=== PATIENT | male | born 1950 | race Caucasian/White ===

== ENCOUNTER → 2016-12-02 | Outpatient (CLI) | payer BC ==
[~2016-12-02] MED LIST: ADAL20KI INJ; ATOR-24 PO; FLV1 PO; GLC850 PO; GLIP-197 PO; METH7.5T PO; NORT25CA PO; OMEP20CA9 OR; POTA20TA16 PO; TPRSR50 PO
== END | disposition home or self-care (01) ==
LOC: C.RDSM 09:20
PROVIDERS: ATTEND Physical Medicine & Rehabilitation Sports Medicine
DX: R20.0 Anesthesia of skin (principal); S44.02XA Injury of ulnar nerve at upper arm level, left arm, initial encounter; X58.XXXA Exposure to other specified factors, initial encounter

== ENCOUNTER → 2017-01-02 | Outpatient (CLI) | payer BC ==
[~2017-01-02] MED LIST changes: +AMLO-114 PO; +FOLI1TAB7 PO; +METF-383 PO; +METO50TA7 PO; +OXYC-57 PO; +PRLSR20 PO
--- NOTE | 2017-01-02 08:14 | DIAGNOSTIC IMAGING REPORT ---
EXAMINATION: RENAL ULTRASOUND CLINICAL HISTORY: HEMATURIA, URINARY FREQUENCY COMPARISON STUDY: October 23, 2015 FINDINGS: The right kidney measures 13.5 cm. The left kidney measures 13.7 cm. There is no evidence of hydronephrosis. There is a 43 mm lower pole left renal cyst. No bladder abnormalities are visualized. Bilateral ureteral jets were visualized. The prostate appears enlarged. IMPRESSION : 4.3 cm left renal cyst. No hydronephrosis. Enlarged prostate. Electronically signed by: Dwaine Sam M.D. 01/02/2017 8:12 AM Dictated Date/Time: 01/02/2017 8:10 AM
== END | disposition home or self-care (01) ==
LOC: C.ULTR 07:34
PROVIDERS: ATTEND Family Medicine
DX: R31.9 Hematuria, unspecified (principal); R35.0 Frequency of micturition; N28.1 Cyst of kidney, acquired; N40.0 Benign prostatic hyperplasia without lower urinary tract symptoms

== ENCOUNTER → 2017-01-21 | Outpatient (CLI) | payer BC | END | disposition home or self-care (01) | LOC: C.PATHSPEC 17:54 | PROVIDERS: ATTEND Nurse Practitioner Family | DX: R31.29 Other microscopic hematuria (principal) ==

== ENCOUNTER → 2017-01-22 | Outpatient (CLI) | payer BC ==
[2017-01-22 16:49] LABS: BASO % 0.2 %; BASO ABS # 0.01 K/uL (0-0.2); COMPLETE YES; EOS % 4.3 %; HEMATOCRIT 38.7 % (42-52); LYMPH % 29.8 %; LYMPH ABS # 1.68 K/uL (1.2-3.4); MEAN CELL VOLUME 92.8 fL (80-100); MEAN CORPUSCULAR HEMOGLOBIN 31.9 pg (25-34); MEAN CORPUSCULAR HGB CONC 34.4 g/dl (32-36); MEAN PLATELET VOLUME 9.1 fL (7.4-10.4); NEUT % 56.7 %; PLATELET COUNT 194 K/uL (130-400); RED BLOOD COUNT 4.17 M/uL (4.7-6.1); WHITE BLOOD COUNT 5.64 K/uL (4.8-10.8)
[2017-01-22 18:42] LABS: ALT/SGPT 45 U/L (12-78); AST/SGOT 29 U/L (15-37); BLOOD UREA NITROGEN 21 mg/dl (7-18)
[2017-01-22 18:44] LABS: ALKALINE PHOSPHATASE 85 U/L (45-117)
== END | disposition home or self-care (01) ==
LOC: C.LAB1850 15:19
PROVIDERS: ATTEND Nurse Practitioner Family
DX: Z15.89 Genetic susceptibility to other disease (principal); M46.90 Unspecified inflammatory spondylopathy, site unspecified; L40.9 Psoriasis, unspecified; Z79.899 Other long term (current) drug therapy; R31.29 Other microscopic hematuria

== ENCOUNTER → 2017-01-27 | Outpatient (CLI) | payer BC ==
[~2017-01-27] MED LIST changes: +OPTIRAY 320 IV PRN
--- NOTE | 2017-01-27 16:03 | DIAGNOSTIC IMAGING REPORT ---
CT OF THE ABDOMEN AND PELVIS WITH AND WITHOUT CONTRAST HEMATURIA PROTOCOL CLINICAL HISTORY: Microscopic hematuria. COMPARISON STUDY: CT of the abdomen and pelvis January 18, 2010 and renal ultrasound January 02, 2017. TECHNIQUE: Unenhanced and split bolus phase imaging of the abdomen and pelvis was performed. Injection of 120 cc Optiray [address] DOSE: 2172.20 mGycm FINDINGS: Lung bases are clear. The liver, spleen, adrenal glands and pancreas are unremarkable. There is a 3.9 cm left renal cyst. Note is made of a 4 mm calculus within the left posterior aspect of the bladder. This is in close proximity to the left ureterovesical junction. This calculus is either within the left ureterovesical junction or within the bladder. There is moderate enlargement of the prostate. There is no evidence for a bowel obstruction. There is left colon diverticulosis without evidence for acute diverticulitis. There is no lymphadenopathy. There are no suspicious osseous lesions. IMPRESSION: 1. 4 mm calculus which projects over the left posterior aspect of the bladder. This is either within the ureterovesical junction or the bladder. No hydronephrosis. 2. Moderate enlargement of prostate. 3. 4 cm renal cyst. Electronically signed by: John Flores M.D. 01/27/2017 4:01 PM Dictated Date/Time: 01/27/2017 3:51 PM
== END | disposition home or self-care (01) ==
LOC: C.CTS 14:49
PROVIDERS: ATTEND Nurse Practitioner Family
DX: R31.29 Other microscopic hematuria (principal)

== ENCOUNTER → 2017-01-29 | Outpatient (CLI) | payer BC ==
[~2017-01-29] MED LIST changes: -OPTIRAY 320 IV PRN
[2017-01-29 14:55] LABS: BLOOD UREA NITROGEN 18 mg/dl (7-18); BUN/CREATININE RATIO 13.8 (10-20)
== END | disposition home or self-care (01) ==
LOC: C.LAB1850 12:04
PROVIDERS: ATTEND Urology
DX: R31.29 Other microscopic hematuria (principal)

== ENCOUNTER → 2017-03-12 | Outpatient (CLI) | payer BC ==
[2017-03-12 15:56] LABS: HEMATOCRIT 42.6 % (42-52); MEAN CELL VOLUME 90.3 fL (80-100); MEAN CORPUSCULAR HEMOGLOBIN 30.9 pg (25-34); MEAN CORPUSCULAR HGB CONC 34.3 g/dl (32-36); MEAN PLATELET VOLUME 8.6 fL (7.4-10.4); PLATELET COUNT 186 K/uL (130-400); RED BLOOD COUNT 4.72 M/uL (4.7-6.1); WHITE BLOOD COUNT 7.64 K/uL (4.8-10.8)
[2017-03-12 16:16] LABS: ALT/SGPT 37 U/L (12-78)
[2017-03-12 16:20] LABS: ALKALINE PHOSPHATASE 85 U/L (45-117); AST/SGOT 29 U/L (15-37)
[2017-03-12 16:27] LABS: BASO % 0.4 %; BASO ABS # 0.03 K/uL (0-0.2); COMPLETE YES; EOS % 5.6 %; IG% 0.3 %; LYMPH % 28.1 %; LYMPH ABS # 2.15 K/uL (1.2-3.4); MONO % 7.5 %; NEUT % 58.1 %
--- NOTE | 2017-03-24 10:54 | CODING QUERY MEDICAL NECESSITY ---
SUPPORTING DIAGNOSIS NEEDED Dr. Alatorre, A supporting diagnosis is required for the test/procedure performed on this patient in order for us to be reimbursed by the patient's insurance. Please provide a supporting diagnosis for the following test/procedure listed below next to the test name along with your signature. *If there is no additional diagnosis for this patient that would support the following test/procedure please document that below next to the test/procedure. Test(s)/Procedure(s) that require a supporting diagnosis: * [id number] PSA DIAGNOSIS: DATE OF SERVICE: 03/12/17 Provider Signature: Date: Thank you Yony Crews [facility] Information Management Once completed, please kindly fax back to [phone] For questions please call [phone]
== END | disposition home or self-care (01) ==
LOC: C.LAB1850 14:29
PROVIDERS: ATTEND Urology
DX: N20.0 Calculus of kidney (principal); M46.90 Unspecified inflammatory spondylopathy, site unspecified; Z79.899 Other long term (current) drug therapy; N40.0 Benign prostatic hyperplasia without lower urinary tract symptoms

== ENCOUNTER → 2017-07-29 | Outpatient (CLI) | payer BC ==
[2017-07-29 13:25] LABS: PARTIAL THROMBOPLASTIN RATIO 0.9; PROTHROMBIN TIME (PATIENT) 10.5 SECONDS (9.0-12.0)
[2017-07-29 13:30] LABS: BASO % 0.5 %; BASO ABS # 0.03 K/uL (0-0.2); COMPLETE YES; EOS % 5.7 %; HEMATOCRIT 40.5 % (42-52); IG% 0.3 %; LYMPH % 30.3 %; LYMPH ABS # 1.76 K/uL (1.2-3.4); MEAN CELL VOLUME 92.5 fL (80-100); MEAN CORPUSCULAR HEMOGLOBIN 32.6 pg (25-34); MEAN CORPUSCULAR HGB CONC 35.3 g/dl (32-36); MEAN PLATELET VOLUME 8.6 fL (7.4-10.4); MONO % 6.7 %; NEUT % 56.5 %; PLATELET COUNT 184 K/uL (130-400); RED BLOOD COUNT 4.38 M/uL (4.7-6.1)
[2017-07-29 13:44] LABS: ALT/SGPT 33 U/L (12-78); BLOOD UREA NITROGEN 17 mg/dl (7-18); BUN/CREATININE RATIO 12.7 (10-20); CALCIUM 9.3 mg/dl (8.5-10.1); CARBON DIOXIDE 33 mmol/L (21-32); CHLORIDE 102 mmol/L (98-107); CREATININE 1.34 mg/dl (0.60-1.40); GLUCOSE 253 mg/dl (70-99); POTASSIUM 3.2 mmol/L (3.5-5.1); SODIUM 141 mmol/L (136-145)
[2017-07-29 13:47] LABS: ALKALINE PHOSPHATASE 100 U/L (45-117); AST/SGOT 24 U/L (15-37)
== END | disposition home or self-care (01) ==
LOC: C.LAB1850 12:28
PROVIDERS: ATTEND Surgery
DX: R31.29 Other microscopic hematuria (principal); Z15.89 Genetic susceptibility to other disease; M46.90 Unspecified inflammatory spondylopathy, site unspecified; Z79.899 Other long term (current) drug therapy; D21.6 Benign neoplasm of connective and other soft tissue of trunk, unspecified; Z01.812 Encounter for preprocedural laboratory examination

== ENCOUNTER → 2017-08-01 | Day surgery (SDC) | payer BC ==
[2017-07-30 15:07] VITALS: Ht 185.4 cm; Wt 113.6 kg
[~2017-08-01] VITALS: Ht 185.4 cm; Wt 113.6 kg
[~2017-08-01] MED LIST changes: +ATROPINE SULFATE 0.1 MG/ML 5ML SYR IV PRN; +BUPIVACAINE 0.5 % 5 MG/1 ML MPF 30ML VIAL ONE; +CLINDAMYCIN PHOS 150 MG/ML 2 ML VIAL IV SCH; +DEXAMETHASONE SOD INJ 4 MG/ML VIAL ONE; +EpHEDrine SULFATE INJ 50 MG/ML AMP IV PRN; +FENTANYL CITRATE INJ 50 MCG/1 ML 2 ML VIAL IV PRN; +FENTANYL CITRATE INJ 50 MCG/1 ML 2 ML VIAL ONE; -FLV1 PO; -GLC850 PO; -GLIP-197 PO; +HYDROmorphone INJ 1 MG/ML SYR IV PRN; +LACTATED RINGER'S 1000ML 1,000 ML IV SCH; +LIDOCAINE HCL 2% 2 ML VIAL (20MG/ML) ONE; +MIDAZOLAM HCL 1 MG/ML 2ML VIAL ONE; -OMEP20CA9 OR; +ONDANSETRON INJ 2 MG/ML 2 ML VIAL IV PRN; +ONDANSETRON INJ 2 MG/ML 2 ML VIAL ONE; +OXYCODONE/ACETAMINOPHEN 5-325 TAB PO PRN; +PROMETHAZINE HCL INJ 12.5 MG in SODIUM CHLORIDE 0.9% 50ML 50 ML IV PRN; +PROPOFOL IV EMULSION 10 MG/ML 20 ML VIAL IV ONE; +ROCURONIUM BROMIDE 10 MG/ML 5 ML VIAL IV ONE; +SODIUM CHLORIDE 0.9% 1000ML 1,000 ML IV SCH; +SUCCINYLCHOLINE CHLORIDE 20 MG/ML 10 ML VIAL IV ONE; -TPRSR50 PO
--- NOTE | 2017-08-01 11:46 | History & Physical Bridge - SC ---
H&P Re-Evaluation Bridge Note: I have examined the patient, reviewed the History & Physical and in the interval since the performance of the History & Physical I have noted the following changes of clinical significance: Last dose of Humira ~12 days ago. No changes noted
--- NOTE | 2017-08-01 12:56 | [facility] Post Operative Brief Note ---
Immediate Operative Summary Operative Date Aug 01, 2017. Pre-Operative Diagnosis 6cm mass on back Post-Operative Diagnosis same as preop Procedure(s) Performed Back Mass Excision (6cm) Surgeon Dr. Bernardo Derrick Boat Leverman Surgeon(s) none Estimated Blood Loss 4ML Findings 6 x 4 cm lipoma excised. Good hemostasis. Specimens A: Posterior Neck Mass Drains none Anesthesia Gen. endotracheal anesthesia Complication(s) None Disposition Recovery Room / PACU
--- NOTE | 2017-08-01 13:00 | Discharge Instructions ---
Discharge Instructions Date of Service Aug 01, 2017. Visit Reason for Visit: 6 Cm Mass On Back Discharge Discharge Diagnosis / Problem: Excision of 6 cm Mass on back Discharge Goals Goal(s): Decrease discomfort, Improve function Medications Stopped Medications Name(s): metformin stopped on 07/30/17 Activity Recommendations Activity Limitations: as noted below Lifting Limitations: no more than 10 pounds Exercise/Sports Limitations: gradually increase as tolerated Shower/Bathe: tomorrow Driving or Machine Use: resume 1 day after discharge (when no longer using narcotic pain medication) Caution with stretching or bending that may tear your sutures. Anesthesia . Post Anesthesia Instructions: If you have had General Anesthesia or IV Sedation: * Do not drive today. * Resume driving when surgeon permits. * Do not make important decisions or sign legal documents today. * Call surgeon for: 1. Temperature elevations greater than 101 degrees F. 2. Uncontrollable pain. 3. Excessive bleeding. 4. Persistent nausea and vomiting. 5. Medication intolerance (nausea, vomiting or rash). * For nausea and vomiting use only clear liquids such as: tea, soda, bouillon until nausea subsides, then gradually increase diet as tolerated. * If you have any concerns or questions, call your surgeon's office. If physician is unavailable and it is an emergency, call 911 or go to the nearest emergency room. . Instructions / Follow-Up Instructions / Follow-Up Follow-up with Dr. Bernardo in the office in 2 weeks. Please call our office at [phone] to schedule an appointment if you have not done so already. Diet Recommendations Recommended Home Diet: resume previous diet Procedures Procedures Performed: Back Mass Excision (6cm) Pending Studies Studies pending at discharge: yes List of pending studies: Pathology Medical Emergencies . Who to Call and When: Medical Emergencies: If at any time you feel your situation is an emergency, please call 911 immediately. . Non-Emergent Contact Non-Emergency issues call your: Primary Care Provider, Surgeon Call Non-Emergent contact if: you have a fever, temperature is above 101.5, your pain is not controlled, your pain is worsening, wound has increased drainage, wound has increased redness . . "Provider Documentation" section prepared by Thad Barboza. . [place] Drug Monitoring Program Search Results: patient reviewed within database, no issues identified
--- NOTE | 2017-08-01 13:01 | [facility] Operative Report ---
Operative Report Operative Date Aug 01, 2017. Pre-Operative Diagnosis 6cm mass on back Post-Operative Diagnosis same as preop Procedure(s) Performed Back Mass Excision (6cm) Surgeon Dr. Bernardo [employer] Mixer Surgeon(s) none Estimated Blood Loss 4ML Findings 6 x 4 cm lipoma excised. Good hemostasis. Specimens A: Posterior Neck Mass Drains none Anesthesia GETA Complication(s) None Disposition Recovery Room / PACU Indications 66-year-old male with symptomatic soft tissue mass of the upper back, likely lipoma, plan for excision soft tissue mass from back. The risks of the procedure were discussed, all questions were answered, and the patient agreed to proceed with surgery as planned. Description of Procedure The patient was properly identified, consented, and taken to the operating room where he was placed in the supine position. General endotracheal anesthesia was induced. The patient was then rolled into the prone position. SCDs and a safety belt were placed. Preoperative antibiotics were administered. The patient's upper back and neck was prepped and draped in the standard sterile fashion. Surgical timeout was performed and all parties were in agreement that this was the correct patient and procedure to be performed and we continued as planned. Local anesthetic was injected along the skin incision. A transverse incision was made overlying the mass and deepened down through the subcutaneous tissue with electrocautery. The lipoma was circumferentially dissected, excised, and passed off the table as specimen. The lipoma had multiple extensions that went into the surrounding tissue, and was removed in piecemeal fashion. The wound was irrigated and hemostasis was confirmed. The Noemy's fascia was closed with interrupted 3-0 Vicryl sutures, the skin was then closed with interrupted 3 -0 Vicryl deep dermal sutures, followed by 3-0 nylon interrupted simple suture. A sterile dressing was placed over the wound. The patient was extubated in the operating room and taken to the PACU where he recovered without apparent incident. All sponge, instrument and needle counts were correct at the conclusion of the procedure. The patient tolerated the procedure well. I attest to the content of the Intraoperative Record and any orders documented therein. Any exceptions are noted below.
[2017-08-01 13:37] VITALS: TEMP 36.4
--- NOTE | 2017-08-01 13:58 | Anesthesia Progress Nt - [facility] ---
Anesthesia Post Op Note Date & Time Aug 01, 2017 at 13:58 Vital Signs Pain Intensity: 0 Vital Signs Past 12 Hours Date Time Temp Pulse Resp B/P (MAP) Pulse Ox O2 Delivery O2 Flow Rate FiO2 08/01/17 13:37 36.4 64 16 139/75 (96) 95 Room Air 08/01/17 13:31 135/71 08/01/17 13:28 63 9 98 08/01/17 13:28 65 9 08/01/17 13:27 65 10 99 08/01/17 13:27 66 10 08/01/17 13:26 64 7 08/01/17 13:26 64 7 136/74 98 08/01/17 13:25 36.6 98 Room Air 08/01/17 13:21 67 3 08/01/17 13:21 67 3 133/74 98 08/01/17 13:16 71 9 131/70 99 08/01/17 13:16 70 9 08/01/17 13:15 70 13 98 08/01/17 13:15 70 13 98 08/01/17 13:15 72 13 08/01/17 13:15 72 13 08/01/17 13:11 138/71 08/01/17 13:11 138/71 08/01/17 13:10 74 12 100 08/01/17 13:10 74 12 100 08/01/17 13:10 74 12 08/01/17 13:10 74 12 08/01/17 13:06 147/81 08/01/17 13:06 147/81 08/01/17 13:05 73 7 08/01/17 13:05 72 7 100 08/01/17 13:05 73 7 08/01/17 13:05 72 7 100 08/01/17 13:00 75 17 08/01/17 13:00 75 17 152/80 99 08/01/17 13:00 75 17 152/80 99 08/01/17 13:00 75 17 08/01/17 13:00 36.6 75 16 154/80 98 Mask 6 08/01/17 10:14 36.7 56 18 182/83 (116) 98 Room Air Notes Mental Status: alert / awake / arousable, participated in evaluation Pt Amnestic to Procedure: Yes Nausea / Vomiting: adequately controlled Pain: adequately controlled Airway Patency, RR, SpO2: stable & adequate BP & HR: stable & adequate Hydration State: stable & adequate Anesthetic Complications: no major complications apparent
[2017-08-01 14:02] VITALS: BP 164/89; PULSE 60; O2SAT 98
== END | disposition home or self-care (01) ==
LOC: X.SURG 09:44
PROVIDERS: ATTEND Surgery
DX: D17.1 Benign lipomatous neoplasm of skin and subcutaneous tissue of trunk (principal); M46.90 Unspecified inflammatory spondylopathy, site unspecified; N40.0 Benign prostatic hyperplasia without lower urinary tract symptoms; L40.9 Psoriasis, unspecified; Z79.84 Long term (current) use of oral hypoglycemic drugs; Z79.899 Other long term (current) drug therapy

== ENCOUNTER → 2018-02-06 | Outpatient (CLI) | payer BC ==
[~2018-02-06] MED LIST changes: -ATROPINE SULFATE 0.1 MG/ML 5ML SYR IV PRN; -BUPIVACAINE 0.5 % 5 MG/1 ML MPF 30ML VIAL ONE; -CLINDAMYCIN PHOS 150 MG/ML 2 ML VIAL IV SCH; -DEXAMETHASONE SOD INJ 4 MG/ML VIAL ONE; -EpHEDrine SULFATE INJ 50 MG/ML AMP IV PRN; -FENTANYL CITRATE INJ 50 MCG/1 ML 2 ML VIAL IV PRN; -FENTANYL CITRATE INJ 50 MCG/1 ML 2 ML VIAL ONE; -FOLI1TAB7 PO; +FOLI1TAB8 PO; -HYDROmorphone INJ 1 MG/ML SYR IV PRN; -LACTATED RINGER'S 1000ML 1,000 ML IV SCH; -LIDOCAINE HCL 2% 2 ML VIAL (20MG/ML) ONE; -METO50TA7 PO; +METO50TA8 PO; -MIDAZOLAM HCL 1 MG/ML 2ML VIAL ONE; -ONDANSETRON INJ 2 MG/ML 2 ML VIAL IV PRN; -ONDANSETRON INJ 2 MG/ML 2 ML VIAL ONE; -OXYC-57 PO; -OXYCODONE/ACETAMINOPHEN 5-325 TAB PO PRN; +POTA-639 PO; -POTA20TA16 PO; -PROMETHAZINE HCL INJ 12.5 MG in SODIUM CHLORIDE 0.9% 50ML 50 ML IV PRN; -PROPOFOL IV EMULSION 10 MG/ML 20 ML VIAL IV ONE; -ROCURONIUM BROMIDE 10 MG/ML 5 ML VIAL IV ONE; -SODIUM CHLORIDE 0.9% 1000ML 1,000 ML IV SCH; -SUCCINYLCHOLINE CHLORIDE 20 MG/ML 10 ML VIAL IV ONE
--- NOTE | 2018-02-06 14:45 | DIAGNOSTIC IMAGING REPORT ---
ULTRASOUND KIDNEYS AND BLADDER CLINICAL HISTORY: Microscopic hematuria. COMPARISON STUDY: Abdominal CT dated 01/27/2017. TECHNIQUE: Real-time, grayscale, and color flow sonography of the kidneys and bladder is performed. Images are reviewed in the transverse and longitudinal planes. FINDINGS: Kidneys: The kidneys demonstrate mild cortical atrophy and are normal in echotexture. The right kidney measures 13.8 cm and the left kidney measures 12.1 cm in length. There is no hydronephrosis. No shadowing renal calculi are identified. A 3.9 cm cyst arises from the lower pole of the left kidney. There is no sonographic evidence of contour deforming renal mass lesion. No perinephric fluid is identified. Bladder: The prostate gland is enlarged and there is median lobe hypertrophy. Although decompressed, the bladder wall appears thickened and trabeculated suggesting chronic outlet obstruction. Ureteral jets were not seen. Upper abdomen: Survey images of the liver show evidence of steatosis. IMPRESSION: 1. The kidneys demonstrate mild cortical atrophy and are without hydronephrosis. 2. Prostatomegaly with evidence of chronic bladder outlet obstruction. Electronically signed by: Evangelist Meneses M.D. 02/06/2018 2:44 PM Dictated Date/Time: 02/06/2018 2:35 PM
== END | disposition home or self-care (01) ==
LOC: C.ULTR 14:10
PROVIDERS: ATTEND Internal Medicine Nephrology
DX: E11.9 Type 2 diabetes mellitus without complications (principal); I10 Essential (primary) hypertension; N18.1 Chronic kidney disease, stage 1; N20.0 Calculus of kidney; R31.29 Other microscopic hematuria; N40.0 Benign prostatic hyperplasia without lower urinary tract symptoms; R80.9 Proteinuria, unspecified

== ENCOUNTER → 2018-02-09 | Outpatient (CLI) | payer BC ==
[2018-02-09 10:12] LABS: BASO % 0.3 %; BASO ABS # 0.02 K/uL (0-0.2); EOS % 5.5 %; EOS ABS # 0.32 K/uL (0-0.5); HEMOGLOBIN 14.4 g/dL (14.0-18.0); IG# 0.01 K/uL (0.00-0.02); LYMPH % 29.7 %; LYMPH ABS # 1.73 K/uL (1.2-3.4); MEAN CELL VOLUME 91.5 fL (80-100); MEAN CORPUSCULAR HEMOGLOBIN 32.1 pg (25-34); MEAN CORPUSCULAR HGB CONC 35.1 g/dl (32-36); MEAN PLATELET VOLUME 8.8 fL (7.4-10.4); MONO % 7.2 %; MONO ABS # 0.42 K/uL (0.11-0.59); NEUT % 57.1 %; NEUT ABS # 3.32 K/uL (1.4-6.5); PLATELET COUNT 184 K/uL (130-400); RED CELL DISTRIBUTION WIDTH CV 12.3 % (11.5-14.5); WHITE BLOOD COUNT 5.82 K/uL (4.8-10.8)
[2018-02-09 10:29] LABS: ALBUMIN 3.8 gm/dl (3.4-5.0); ALT/SGPT 41 U/L (12-78); AST/SGOT 26 U/L (15-37); BLOOD UREA NITROGEN 15 mg/dl (7-18); CALCIUM 9.1 mg/dl (8.5-10.1); CARBON DIOXIDE 27 mmol/L (21-32); CREATININE 1.65 mg/dl (0.60-1.40); GLUCOSE 216 mg/dl (70-99); POTASSIUM 3.2 mmol/L (3.5-5.1); SODIUM 139 mmol/L (136-145)
[2018-02-09 10:34] LABS: ALKALINE PHOSPHATASE 86 U/L (45-117); TOTAL PROTEIN 7.6 gm/dl (6.4-8.2)
== END | disposition home or self-care (01) ==
LOC: C.LAB1850 08:51
PROVIDERS: ATTEND Internal Medicine Nephrology
DX: N40.0 Benign prostatic hyperplasia without lower urinary tract symptoms (principal); M46.90 Unspecified inflammatory spondylopathy, site unspecified; R31.29 Other microscopic hematuria; I12.9 Hypertensive chronic kidney disease with stage 1 through stage 4 chronic kidney disease, or unspecified chronic kidney disease; E11.9 Type 2 diabetes mellitus without complications; N18.1 Chronic kidney disease, stage 1; R80.9 Proteinuria, unspecified; N20.0 Calculus of kidney

== ENCOUNTER → 2018-02-24 | Outpatient (CLI) | payer BC ==
--- NOTE | 2018-02-24 16:39 | DIAGNOSTIC IMAGING REPORT ---
VENOUS DOPPLER LWR EXT BILA CLINICAL HISTORY: 67 years-old Male presenting with RT LE PAIN/SWELLING, R/O DVT PAGE DR MILLER @[id number]. TECHNIQUE: Real-time grayscale and color and spectral Doppler ultrasound imaging of the veins of the bilateral lower extremities was performed. Compression and augmentation were also utilized. COMPARISON: None. FINDINGS: Right: Common femoral vein: Patent. Greater saphenous vein: Patent. Deep femoral vein: Patent. Femoral vein: Patent. Popliteal vein: Patent. Calf veins: Patent. Left: Common femoral vein: Patent. Greater saphenous vein: Patent. Deep femoral vein: Patent. Femoral vein: Patent. Popliteal vein: Patent. Calf veins: Patent. Other: None. IMPRESSION: No evidence of deep venous thrombosis. Electronically signed by: Paulie Beck M.D. 02/24/2018 4:37 PM Dictated Date/Time: 02/24/2018 4:37 PM
== END | disposition home or self-care (01) ==
LOC: C.ULTR 15:22
PROVIDERS: ATTEND Physical Medicine & Rehabilitation
DX: M79.89 Other specified soft tissue disorders (principal)

== ENCOUNTER 2023-05-20 08:45 | Observation (INO) ==
--- NOTE | 2023-04-29 09:30 | PAT Medication Instructions ---
Medication Instructions Date of Service April 29, 2023 Home Medications Medication Instructions Recorded ergocalciferol (vitamin D2) 1,250 1,250 mcg PO .COMPLEX #12 caps 10/09/22 mcg (50,000 unit) capsule bumetanide 1 mg tablet 1 mg PO BID #180 tabs 02/10/23 semaglutide 2 mg/dose (8 mg/3 mL) 2 mg (0.75 mL) subcut .weekly #3 mL 03/05/23 subcutaneous pen injector (Ozempic) adalimumab 40 mg/0.8 mL subcutaneous syringe kit (Humira) 40 mg subcut Q14D meloxicam 7.5 mg tablet 7.5 mg PO DAILY PRN metoprolol succinate 50 mg capsule sprinkle, ext. release 24 hr 50 mg PO QAM pravastatin 80 mg tablet 80 mg PO QAM amlodipine 5 mg tablet 5 mg PO QAM ergocalciferol (vitamin D2) 1,250 mcg (50,000 unit) capsule 1,250 mcg PO .COMPLEX bumetanide 1 mg tablet 1 mg PO BID semaglutide 2 mg/dose (8 mg/3 mL) subcutaneous pen injector (Ozempic) 2 mg (0.75 mL) subcut .weekly dutasteride 0.5 mg capsule 0.5 mg PO QAM folic acid 1 mg tablet 1 mg PO UD gabapentin 300 mg capsule 300 mg PO UD methotrexate sodium 2.5 mg tablet 2.5 mg PO UD STOP 7 days before surgery methotrexate sodium 2.5 mg tablet 2.5 mg PO UD Continue as directed semaglutide 2 mg/dose (8 mg/3 mL) subcutaneous pen injector (Ozempic) 2 mg (0.75 mL) subcut .weekly gabapentin 300 mg capsule 300 mg PO UD ASK your surgeon for instructions meloxicam 7.5 mg tablet 7.5 mg PO DAILY PRN ASK your prescriber and surgeon adalimumab 40 mg/0.8 mL subcutaneous syringe kit (Humira) 40 mg subcut Q14D DO NOT take the morning of surgery ergocalciferol (vitamin D2) 1,250 mcg (50,000 unit) capsule 1,250 mcg PO .COMPLEX bumetanide 1 mg tablet 1 mg PO BID dutasteride 0.5 mg capsule 0.5 mg PO QAM folic acid 1 mg tablet 1 mg PO UD Take morning of surgery With a small sip of water, OTHERWISE NOTHING TO EAT OR DRINK AFTER MIDNIGHT: metoprolol succinate 50 mg capsule sprinkle, ext. release 24 hr 50 mg PO QAM pravastatin 80 mg tablet 80 mg PO QAM amlodipine 5 mg tablet 5 mg PO QAM Take evening before surgery bumetanide 1 mg tablet 1 mg PO BID Other Notes If you have any questions please call us at [phone] or [phone] or [phone] or [phone]
--- NOTE | 2023-05-05 09:11 | Anesthesiology Consultation ---
Date of Service May 05, 2023 Assessment & Plan (1) Encounter for pre-operative examination: Chart Review Chart Review: Pending: Refer to Additional Notes / Consult section (pending plan re: uncontrolled DM) and Patient seen in Pre Admission Testing - Surgeon would like PCP to try to improve patient's blood sugars LELAND- per surgeon's office- PCP appt scheduled 05/13/23 - Check BSG AM DOS Per PAT appt on 05/05/23, patient denies any recent travel. No recent Covid exposures, Covid related symptoms, or recent Covid positive tests. Will leave to surgeon's discretion if preop Covid testing needed. Educated on importance of using Covid precautions one week prior to surgery. Pt seen in the ER 05/05/23= Patient seen for evaluation of hyperglycemia. Had preop testing with blood sugar of 306sent to the ER for evaluation. History of hyperglycemiahas been stressed about having surgery. Does admit to being a bit dehydrated. Given IV fluids and feels quite well. Blood sugars in mid 200sotherwise labs unremarkable. Mild elevation in creatinine but is at baseline and follows with nephrology closely. Patient is reasonable for discharge. Follow-up with PCP and nephrology Excision of back mass 08/01/17= Done under GA with Grade 1 view with Mason #2. ETT #8.0. DL x 1, atraumatic Teaching & Discussion Pre-Anesthesia Teaching/Discussion Notes: Instructed NPO after midnight before surgery,except medications with 15 cc of water. Medication instructions provided according to the PAT guidelines. History Surgery Operation Date: 05/20/23 10:30 Proposed Procedures p Robotic asssited Laparoscopic Partial Nephrectomy Left Possible Radical - Ilan Luna MD Height/Weight Height: 6 ft 1 in Weight: 109 kg Allergies Allergy/AdvReac Type Severity Reaction Status Date / Time Penicillins Allergy Mild RASH Verified 04/25/23 09:21 lisinopril AdvReac Mild COUGH Verified 04/25/23 09:21 losartan AdvReac Mild Cough Verified 04/25/23 09:22 Medications Home Medications Medication Instructions Recorded Confirmed Last Taken adalimumab 40 mg/0.8 mL 40 mg subcut Q14D 04/20/19 04/25/23 Unknown subcutaneous syringe kit (Humira) meloxicam 7.5 mg tablet 7.5 mg PO DAILY PRN Pain 07/29/19 04/25/23 Unknown metoprolol succinate 50 mg capsule 50 mg PO QPM 11/05/19 05/05/23 Unknown sprinkle, ext. release 24 hr amlodipine 5 mg tablet 5 mg PO QPM 04/23/21 05/05/23 Unknown ergocalciferol (vitamin D2) 1,250 1,250 mcg PO .COMPLEX #12 caps 10/09/22 04/25/23 Unknown mcg (50,000 unit) capsule bumetanide 1 mg tablet 1 mg PO BID #180 tabs 02/10/23 04/25/23 Unknown semaglutide 2 mg/dose (8 mg/3 mL) 2 mg (0.75 mL) subcut .weekly #3 mL 03/05/23 04/25/23 Unknown subcutaneous pen injector (Ozempic) dutasteride 0.5 mg capsule 0.5 mg PO QAM 04/25/23 04/25/23 Unknown folic acid 1 mg tablet 1 mg PO UD 04/25/23 04/25/23 Unknown gabapentin 300 mg capsule 300 mg PO UD 04/25/23 04/25/23 Unknown methotrexate sodium 2.5 mg tablet 2.5 mg PO UD 04/25/23 04/25/23 Unknown amitriptyline 25 mg tablet 25 mg PO HS 05/05/23 05/05/23 Unknown cyanocobalamin (vitamin B-12) 1,000 mcg PO DAILY 05/05/23 05/05/23 Unknown 1,000 mcg tablet empagliflozin 10 mg tablet 10 mg PO QAM 05/05/23 05/05/23 Unknown potassium chloride 10 mEq 10 meq PO BID 05/05/23 05/05/23 Unknown capsule,extended release rosuvastatin 10 mg tablet 10 mg PO QPM 05/05/23 05/05/23 Unknown Past Medical History Medical History Arthritis BPH with obstruction/lower urinary tract symptoms Chronic kidney disease, stage 3 Diabetes mellitus, type 2 Fair controlled per patient Hyperlipidemia Hypertension Kidney mass Peripheral neuropathy Noted to LEs Sleep apnea cpap Exercise / Class Metabolic Activity II 4-5 Yardwork/Stairs/Walk up hill (one flight of stairs- no chest pain or SOB ) Past Family History Family History Father Rheumatoid arthritis Ankylosing spondylitis Sister Ankylosing spondylitis Mother Diabetes Cardiac disorder Other No family history of adverse response to anesthesia Past Surgical History Surgical History H/O bilateral cataract extraction H/O excision of dermoid cyst H/O foot surgery rt H/O wrist surgery left History of arthroscopy left/rt knee History of colonoscopy History of tooth extraction Past Anesthesia History No Hx of Anesthesia Complications and No Family Hx of Anesthesia Complications History of PONV No Hx of PONV and No Hx of Motion Sickness Social History Smoking Status: Former smoker tobacco type: cigars Do You Dip or Chew Tobacco: No Smoking End Date: occas. cigar use in the past- no recent use Hx Alcohol Use: Yes Alcohol type: wine alcohol intake frequency: holidays/special occasions only Hx Substance Use: No substance use type: does not use Review of Systems Rare GERD - no medications needed Patient denies chest pain, shortness of breath, dyspnea on exertion, cough, wheezing, palpitations. No hx of seizures, stroke, NE. No hx of blood clots or blood transfusions Physical Exam Vital Signs VITALS BP 136/68 P 69 TEMP 98.1 SP02 97% RESP 16 Constitutional no acute distress ENMT Mouth: + small oral opening; no TMJ clicking Thyromental Distance: > or= 3.5 Finger Breadths (3.5) Mallampati Class: III Neck + limited neck extension (significant ) and + facial hair Respiratory normal respiratory effort; no respiratory distress Auscultation: lungs clear to auscultation bilaterally; no wheezes Cardiovascular Rate/Rhythm: regular rate and regular rhythm Heart Sounds: no murmur Vessels: no carotid bruit Musculoskeletal Spine: no pain with cervical ROM Extremities: extremities normal to inspection Psychiatric Orientation: alert Lab Results Anesthesia Preop Results Results Anesthesia Widget: WBC 7.44 K/ul (4.8-10.8) 05/05/23 Hgb 14.9 g/dl (14.0-18.0) 05/05/23 Hct 42.6 % (42.0-52.0) 05/05/23 Plt 223 K/uL (130-400) 05/05/23 Na 140 mmol/L (136-145) 05/05/23 K 3.5 mmol/L (3.5-5.1) 05/05/23 Cl 102 mmol/L (98-107) 05/05/23 CO2 29 mmol/L (21-32) 05/05/23 BUN 23 mg/dl (6-23) 05/05/23 Creat 2.52 mg/dl (0.6-1.4) H 05/05/23 Glucose Level 161 mg/dl (70-99(Fasting)) H 05/05/23 HA1c 8.7 % (4.5-5.6) H 05/05/23 Blood Type O Positive 05/05/23 Antibody Screen NEGATIVE 05/05/23 Testing Laboratory Results Surgeon's office informed of hyperglycemia/uncontrolled DM at [facility] appt 05/05/23 (glucose was 307)- patient was sent to ER by PCP provider later that day due to blood sugars - will leave to surgeon's discretion on how to proceed Surgeon's office informed of increasing creatinine (seen by nephro 04/02/23- creat 2.4 at that time)- will leave to surgeon's discretion on how to proceed 05/05/23= URINE CULTURE: results pending (will leave to urologist's discretion how to proceed with final results) Electrocardiogram Date: 05/05/23 SR with 1st degree AVB at 66bpm LAFB When compared to EKG from May 05, 2023- CO interval has increased Chest X-Ray Date: 05/05/23 FINDINGS: PA and lateral chest radiographs are compared to study dated 10/21/2015. The heart is mildly enlarged. The pulmonary vasculature is noncongested. There is mild bibasilar scarring/atelectasis. The lungs and pleural spaces are otherwise clear. There is no pneumothorax. The skeletal structures are osteopenic. The bony thorax appears intact. Spondylotic change is seen in the spine. IMPRESSION: Mild cardiomegaly with no active disease in the chest. Echocardiogram Date: 01/03/23 EF: 60-65% LV Function: normal RWMA: + none Other Findings: + LVH (mild/concentric ); no diastolic dysfunction Mild MR Mild to moderate AR Other Testing Carotid Doppler 12/18/2020 = no significant stenosis of the right internal carotid artery. No stenosis of the left internal carotid artery. Antegrade flow in both vertebral arteries. Normal flow in bilateral subclavian arteries.
--- NOTE | 2023-05-05 09:35 | PAT Medication Instructions ---
Medication Instructions Date of Service May 05, 2023 Home Medications Medication Instructions Recorded ergocalciferol (vitamin D2) 1,250 1,250 mcg PO .COMPLEX #12 caps 10/09/22 mcg (50,000 unit) capsule bumetanide 1 mg tablet 1 mg PO BID #180 tabs 02/10/23 semaglutide 2 mg/dose (8 mg/3 mL) 2 mg (0.75 mL) subcut .weekly #3 mL 03/05/23 subcutaneous pen injector (Ozempic) adalimumab 40 mg/0.8 mL subcutaneous syringe kit (Humira) 40 mg subcut Q14D meloxicam 7.5 mg tablet 7.5 mg PO DAILY PRN Pain metoprolol succinate 50 mg capsule sprinkle, ext. release 24 hr 50 mg PO QPM amlodipine 5 mg tablet 5 mg PO QPM ergocalciferol (vitamin D2) 1,250 mcg (50,000 unit) capsule 1,250 mcg PO .COMPLEX bumetanide 1 mg tablet 1 mg PO BID semaglutide 2 mg/dose (8 mg/3 mL) subcutaneous pen injector (Ozempic) 2 mg (0.75 mL) subcut .weekly dutasteride 0.5 mg capsule 0.5 mg PO QAM folic acid 1 mg tablet 1 mg PO UD gabapentin 300 mg capsule 300 mg PO UD methotrexate sodium 2.5 mg tablet 2.5 mg PO UD amitriptyline 25 mg tablet 25 mg PO HS cyanocobalamin (vitamin B-12) 1,000 mcg tablet 1,000 mcg PO DAILY empagliflozin 10 mg tablet 10 mg PO QAM potassium chloride 10 mEq capsule,extended release 10 meq PO BID rosuvastatin 10 mg tablet 10 mg PO QPM aspirin 81mg tablet 81mg PO QAM Continue as directed semaglutide 2 mg/dose (8 mg/3 mL) subcutaneous pen injector (Ozempic) 2 mg (0.75 mL) subcut .weekly ASK your surgeon for instructions meloxicam 7.5 mg tablet 7.5 mg PO DAILY PRN Pain ASK your prescriber and surgeon adalimumab 40 mg/0.8 mL subcutaneous syringe kit (Humira) 40 mg subcut Q14D methotrexate sodium 2.5 mg tablet 2.5 mg PO UD aspirin 81mg tablet 81mg PO QAM STOP taking 3 days prior to surgery empagliflozin 10 mg tablet 10 mg PO QAM DO NOT take the morning of surgery ergocalciferol (vitamin D2) 1,250 mcg (50,000 unit) capsule 1,250 mcg PO .COMPLEX bumetanide 1 mg tablet 1 mg PO BID folic acid 1 mg tablet 1 mg PO UD cyanocobalamin (vitamin B-12) 1,000 mcg tablet 1,000 mcg PO DAILY potassium chloride 10 mEq capsule,extended release 10 meq PO BID Take morning of surgery With a small sip of water, OTHERWISE NOTHING TO EAT OR DRINK AFTER MIDNIGHT: dutasteride 0.5 mg capsule 0.5 mg PO QAM gabapentin 300 mg capsule 300 mg PO UD Take evening before surgery metoprolol succinate 50 mg capsule sprinkle, ext. release 24 hr 50 mg PO QPM amlodipine 5 mg tablet 5 mg PO QPM bumetanide 1 mg tablet 1 mg PO BID gabapentin 300 mg capsule 300 mg PO UD amitriptyline 25 mg tablet 25 mg PO HS potassium chloride 10 mEq capsule,extended release 10 meq PO BID rosuvastatin 10 mg tablet 10 mg PO QPM Other Notes If you have any questions please call us at [phone] or [phone] or [phone] or [phone]
--- NOTE | 2023-05-19 13:57 | Anesthesiology Consultation ---
Date of Service May 19, 2023 Assessment & Plan Chart Review Chart Review: Acceptable Risk for Surgery Consults Requested none History Surgery Operation Date: 05/20/23 10:30 Proposed Procedures p Robotic assisted Laparoscopic Partial Nephrectomy Left Possible Radical - Ilan Luna MD Height/Weight Height: 6 ft 1 in Weight: 109 kg Allergies Allergy/AdvReac Type Severity Reaction Status Date / Time Penicillins Allergy Mild RASH Verified 04/25/23 09:21 lisinopril AdvReac Mild COUGH Verified 04/25/23 09:21 losartan AdvReac Mild Cough Verified 04/25/23 09:22 Medications Home Medications Medication Instructions Recorded Confirmed Last Taken adalimumab 40 mg/0.8 mL 40 mg subcut Q14D 04/20/19 04/25/23 Unknown subcutaneous syringe kit (Humira) meloxicam 7.5 mg tablet 7.5 mg PO DAILY PRN Pain 07/29/19 04/25/23 Unknown metoprolol succinate 50 mg capsule 50 mg PO QPM 11/05/19 05/05/23 Unknown sprinkle, ext. release 24 hr amlodipine 5 mg tablet 5 mg PO QPM 04/23/21 05/05/23 Unknown ergocalciferol (vitamin D2) 1,250 1,250 mcg PO .COMPLEX #12 caps 10/09/22 04/25/23 Unknown mcg (50,000 unit) capsule bumetanide 1 mg tablet 1 mg PO BID #180 tabs 02/10/23 04/25/23 Unknown semaglutide 2 mg/dose (8 mg/3 mL) 2 mg (0.75 mL) subcut .weekly #3 mL 03/05/23 04/25/23 Unknown subcutaneous pen injector (Ozempic) dutasteride 0.5 mg capsule 0.5 mg PO QAM 04/25/23 04/25/23 Unknown folic acid 1 mg tablet 1 mg PO UD 04/25/23 04/25/23 Unknown gabapentin 300 mg capsule 300 mg PO UD 04/25/23 04/25/23 Unknown methotrexate sodium 2.5 mg tablet 2.5 mg PO UD 04/25/23 04/25/23 Unknown amitriptyline 25 mg tablet 25 mg PO HS 05/05/23 05/05/23 Unknown cyanocobalamin (vitamin B-12) 1,000 mcg PO DAILY 05/05/23 05/05/23 Unknown 1,000 mcg tablet empagliflozin 10 mg tablet 10 mg PO QAM 05/05/23 05/05/23 Unknown potassium chloride 10 mEq 10 meq PO BID 05/05/23 05/05/23 Unknown capsule,extended release rosuvastatin 10 mg tablet 10 mg PO QPM 05/05/23 05/05/23 Unknown Past Medical History Medical History Arthritis BPH with obstruction/lower urinary tract symptoms Chronic kidney disease, stage 3 Diabetes mellitus, type 2 Hyperlipidemia Hypertension Kidney mass Peripheral neuropathy Sleep apnea Past Family History Family History Father Rheumatoid arthritis Ankylosing spondylitis Sister Ankylosing spondylitis Mother Diabetes Cardiac disorder Other No family history of adverse response to anesthesia Past Surgical History Surgical History H/O bilateral cataract extraction H/O excision of dermoid cyst H/O foot surgery H/O wrist surgery History of arthroscopy History of colonoscopy History of tooth extraction Social History Smoking Status: Current some day smoker tobacco type: cigars Do You Dip or Chew Tobacco: No Smoking End Date: occas. cigar use in the past- no recent use Hx Alcohol Use: Yes Alcohol type: wine alcohol intake frequency: holidays/special occasions only Hx Substance Use: No substance use type: does not use
[~2023-05-20 08:45] MED LIST changes: -ADAL20KI INJ; +ALLERGY Noted to ORDERED Medication SCH; -AMLO-114 PO; -ATOR-24 PO; +DEXAMETHASONE SOD INJ 4 MG/ML VIAL ONE; -FOLI1TAB8 PO; +KETAMINE 50 MG/5 ML SYRINGE ONE; +LIDOCAINE 2% 2 ML VIAL/AMP(20MG/ML) INFIL ONE; -METF-383 PO; -METH7.5T PO; -METO50TA8 PO; +MIDAZOLAM HCL 1 MG/ML 2ML VIAL ONE; -NORT25CA PO; +ONDANSETRON INJ 2 MG/ML 2 ML VIAL ONE; -POTA-639 PO; -PRLSR20 PO; +PROPOFOL IV EMULSION 10 MG/ML 20 ML VIAL IV ONE; +ROCURONIUM BROMIDE 10 MG/ML 5 ML VIAL IV ONE; +SODIUM CHLORIDE 0.9% 1000ML 1,000 ML IV SCH; +SUGAMMADEX SODIUM 200 MG/2 ML VIAL IV ONE; +fentaNYL citrate PF 100 MCG/2 ML VIAL ONE
[2023-05-20] MEDS ORDERED: HYDROmorphone INJ 1 MG/ML SYRINGE IV PRN (10:25)
[2023-05-20] MEDS ORDERED: ATROPINE SULFATE 0.1 MG/ML 10ML SYR IV PRN (10:25)
[2023-05-20] MEDS ORDERED: ePHEDrine sulfate 50 MG/ML AMP IV PRN (10:25)
[2023-05-20] MEDS ORDERED: ONDANSETRON INJ 2 MG/ML 2 ML VIAL IV PRN ×2 (10:25→15:11)
--- NOTE | 2023-05-20 10:34 | History & Physical Bridge Note ---
Date of Service May 20, 2023 History & Physical Bridge Note I have examined the patient, reviewed the History & Physical and in the interval since the performance of the History & Physical I have noted the following changes of clinical significance: no changes noted
[2023-05-20] MEDS ORDERED: ceFAZolin 2,000 MG/15 ML IV PUSH IV ONE (10:37)
[2023-05-20] MEDS ORDERED: Nursing to Pharmacy Communication SCH (10:45)
[2023-05-20] MEDS ORDERED: ceFAZolin 2000MG 2,000 MG/15 ML SYR IV ONE (11:00)
[2023-05-20] MEDS ORDERED: BUPIVACAINE 0.5 % 5 MG/1 ML MPF 30ML VIAL ONE (11:12)
[2023-05-20] MEDS ORDERED: SURGICEL ABSORB HEMOSTAT 2IN X 14IN TOP ONE (12:41)
[2023-05-20] MEDS ORDERED: FLOSEAL HEMOSTATIC MATRIX 10ML TOP ONE (12:41)
[2023-05-20] MEDS ORDERED: TISSEEL FIBRIN SEALANT 10ML TOP ONE (12:41)
[2023-05-20] MEDS ORDERED: fentaNYL citrate PF 100 MCG/2 ML VIAL ONE (13:18)
[2023-05-20 14:43] LABS: Hematocrit (blood only) 35.3 % (42.0-52.0); Hemoglobin 12.2 g/dl (14.0-18.0); Mean Corpuscular Hemoglobin 31.9 pg (25.0-34.0); Mean Corpuscular Hgb Conc 34.6 g/dL (32.0-36.0); Mean Corpuscular Volume 92.4 fL (80.0-100.0); Platelet Count 156 K/uL (130-400); RDW Coefficient of Variation 12.7 % (11.5-14.5); RDW Standard Deviation 42.5 fL (36.4-46.3); Red Blood Count 3.82 M/uL (4.70-6.10); White Blood Count 9.35 K/ul (4.8-10.8)
[2023-05-20 14:49] LABS: BUN Creatinine Ratio 9.8 (10-20); Calcium 8.1 mg/dl (8.6-10.3); Est GFR (African American) 29.2 ml/min; Est GFR (Non-African American) 25.2 ml/min; Potassium 3.8 mmol/L (3.5-5.1)
--- NOTE | 2023-05-20 14:59 | Anesthesiology Progress Note ---
Date of Service May 20, 2023 Anesthesia Post Procedure Vital Signs Vital Signs: Temp Pulse Pulse Resp BP BP Pulse Ox 05/20/23 14:50 36.6 C 62 16 117/60 94 05/20/23 14:40 63 18 116/59 L 94 05/20/23 14:30 64 20 117/58 L 96 05/20/23 14:20 65 20 112/56 L 97 05/20/23 14:13 36.5 C 68 19 109/63 96 05/20/23 09:11 36.6 C 82 20 178/81 H 198/93 H 98 O2 Del Method O2 Flow Rate 05/20/23 14:50 Nasal Cannula 2 05/20/23 14:40 Nasal Cannula 2 05/20/23 14:30 Oxymask 9 05/20/23 14:20 Oxymask 9 05/20/23 14:13 Oxymask 9 05/20/23 09:11 Room Air Pain Intensity Left Flank: Pain Intensity: 0 Transfer of Care Handoff Completed per policy Notes Mental Status: alert / awake / arousable and participated in evaluation Nausea / Vomiting: adequately controlled Pain: adequately controlled Airway Patency, RR, SpO2: stable & adequate BP & HR: stable & adequate Hydration State: stable & adequate Anesthetic Complications: no major complications apparent and Pt Satisfied with anesthetic care
[2023-05-20] MEDS ORDERED: PHARMACY GLYCEMIC MGMT CONSULT PRN (15:11)
[2023-05-20] MEDS ORDERED: oxyCODONE HCL IR 5 MG TAB (IMMEDIATE RELEASE) PO PRN (15:11)
[2023-05-20 15:12] LABS: Basophils # (auto) 0.03 K/uL (0-0.2); Basophils % (auto) 0.3 %; Eosinophils # (auto) 0.05 K/uL (0-0.50); Eosinophils % (auto) 0.5 %; Immature Granulocytes # (auto) 0.04 K/uL (0.01-0.20); Immature Granulocytes % (auto) 0.4 %; Lymphocytes # (auto) 0.69 K/uL (1.2-3.4); Lymphocytes % (auto) 7.4 %; Monocytes # (auto) 0.08 K/uL (0.11-0.59); Monocytes % (auto) 0.9 %; Neutrophils # (auto) 8.46 K/uL (1.40-6.50); Neutrophils % (auto) 90.5 %
[2023-05-20] MEDS: MoRPHine SULFATE 4 MG/ML 1 ML CARP\\VIAL IV PRN ×2 (15:42→20:49)
[2023-05-20] MEDS: SODIUM CHLORIDE 0.9% 1000ML 1,000 ML IV SCH (15:43)
--- NOTE | 2023-05-20 15:45 | Operative Report ---
PG Post Operative Report Pre & Post Diagnosis Operation Date: 05/20/23 10:30 Pre-Op Diagnosis: Left Kidney Mass, Chronic Kidney Disease Post-Op Diagnosis: Left Kidney Mass, Chronic Kidney Disease I identified the patient and participated in the time-out.: Yes Procedure Operation Date: 05/20/23 10:30 Actual Procedures p Robotic Assisted Laparoscopic Left Radical Nephrectomy(Left) - Ilan Luna MD Surgeon Ilan Luna MD [employer] Logger Pramod Hernandez; Pilar Ariza Estimated Blood Loss 100 Findings Consistent with Post-Op Diagnosis Specimens Left kidney Description of Procedure Patient was identified in the preoperative holding area, appropriate informed consents reviewed and completed and the patient was transported the operating suite. Upon arrival he received appropriate preoperative antibiotics and was placed in a [id number] left side up lateral decubitus position in the bed flexed. Of note he has some ankylosing spondylitis so flexibility is an issue and we position to the best of our ability and made sure he was appropriately braced. To begin the actual surgical case I passed a Veress needle into the left upper quadrant. Insufflation was achieved without difficulty. I then marked the tentative port locations for 4 robotic ports and 2-12 mm assistance. The 4 robotic ports were placed in a linear pattern at the mid costal line beginning approximately 3 fingerbreadths below the costal margin. The 212 mm ports were placed lateral to the rectus border with the first placed approximately at the level of the umbilicus and the other approximately 8 cm superior to it. After placement of the ports I docked the robot. I incised the white line of Toldt and medialized the colon off of the kidney. The large cystic lesion was clearly visualized as this had auto dissected most of the Gerota's fascia off the anterior surface of the kidney. I was able to continue this dissection over the superior pole of the kidney under the spleen. I was able to dissect inferiorly into the identify the gonadal vessel. I traced the anterior surface of the gonadal vein until I reached the inferior aspect of the renal vein. I was able to create a path lateral to the gonadal vein and under the kidney and used this to elevate the kidney to help stretch the hilar structures. I could not readily identify the artery at that time but I felt comfortable with the venous dissection as I had circumferentially cleared the path around the vein. I then turned my attention to the kidney. My primary concern heading into the surgery was the medial aspect of his renal lesion and its proximity to the renal vessels as well as the major central structures of the kidney. I began to identify the border of the mass at the inferior aspect. He had a copious amount of fat around the kidney and identification of healthy renal tissue was somewhat challenging. I did feel I adequately achieve this and I continued to dissect around the lateral portion of this mass and towards the superior area. Before completing the superior area I turned my attention back to the medial area. I began to dissect in this area but it became very evident that this structure is too close in proximity to the hilar structures to be able to safely dissect it without risking rupture of the cystic mass or invasion into the vascular structures. At that time I elected to convert to a radical nephrectomy and a stapling device was placed across the hilar structures and fired. The artery proved to be behind the vein but not captured with the first staple load so a second staple load was passed to capture the artery. I then continued my dissection around the inferior pole of the kidney and clipped the ureter before dividing it. The superior attachments of the kidney were still present at that time and I dissected these to the best of my ability but he has a very large specimen because of the copious amount of Gerota's fascia and fat. As I could not quite reach the very upper pole of the kidney to free it, I made an incision for extraction and passed the hand internally to be able to free that area. I did fire 2 staple loads across the upper connection between the medial portion of the adrenal gland and the kidney to spare portion of the adrenal and completely free the kidney. The specimen was then extracted. Hemostasis was excellent in the renal fossa. Closure was accomplished in multiple layers with first reapproximation of the transversalis fascia and peritoneum the of a 0 Vicryl followed by the internal oblique and external oblique each closed with a 0 PDS. Skin was closed with 4-0 Monocryl and all incisions were infiltrated with half percent Marcaine. Dermabond was placed over each of the incisions. Beal catheter was left in place. He was reversed of anesthesia and taken to the recovery room in stable condition after the specimen was passed off the table for pathological analysis. Pilar Ariza assisted from incision to closure and Dr. Pramod Hernandez assisted with the zhou portions of the laparoscopic part of the case. I attest to the content of the Intraoperative Record and any orders documented therein. Any exceptions are noted below.
[2023-05-20] MEDS ORDERED: GLUCOSE 10 TAB/TUBE PO PRN (16:00)
[2023-05-20] MEDS ORDERED: CARBOHYDRATES FOR HYPOGLYCEMIA PO PRN (16:00)
[2023-05-20] MEDS ORDERED: GLUCAGON FOR INJ 1 MG VIAL IM PRN (16:00)
[2023-05-20] MEDS ORDERED: GLUCOSE 40% GEL 15 GM TUBE PO PRN (16:00)
[2023-05-20] MEDS ORDERED: DEXTROSE 50% 50 ML SYRINGE IV PRN (16:00)
[2023-05-20] MEDS ORDERED: LANTUS PER UNIT CHARGE SC ONE (16:30)
[2023-05-20] MEDS: ACETAMINOPHEN 325 MG TAB PO SCH ×2 (16:35→22:11)
[2023-05-20] MEDS: oxyCODONE HCL IR 5 MG TAB (IMMEDIATE RELEASE) PO PRN (16:35)
[2023-05-20] MEDS: INSULIN ASPART PER UNIT CHARGE SC SCH ×2 (17:16→20:24)
[2023-05-20] MEDS: ceFAZolin 2000MG 2,000 MG/15 ML SYR IV SCH (18:33)
--- NOTE | 2023-05-20 19:23 | Nephrology Consultation ---
Date of Consultation May 20, 2023 Assessment & Plan (1) CKD stage 4 due to type 2 diabetes mellitus: * Baseline Cr has risen to 2.5 w/ EGFR 24 cc/min * Kidney function remains stable following L radical nephrectomy. Electrolyte balance is acceptable * PRP, CBC in am. 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 Martinez is a 72 year old white male who is seen at the request of Dr. Luna for evaluation of CKD. Information for the HPI is obtained from patient interview and review of the EMR. HPI is summarized as folllows: Mr. Martinez has CKD stage G4/A3 (advanced impairment). Baseline Cr has risen to 2.5 w/ EGFR 24 cc/min. Outpatient evaluation revealed acellular urine sediment, UPCR > 3.0. 07/26 serum immunofixation was negative for monoclonal protein. Renal impairment is likely on the basis of DKD, hypertensive nephrosclerosis. When creatinine jose to 2.5, repeat renal US was obtained. 03/28 renal US revealed a 7 cm cystic lesion arising from the lower pole of the L kidney. A 3 cm solid component was identified within the cyst concerning for a cystic neoplasm. 03/[address] revealed that the cystic mass had increased in size compared to prior CT studies. The mass was near the renal hilum. On 05/20/23 Mr. Martinez underwent robotic assisted L radical nephrectomy. He was evaluated in his hospital room this afternoon and appeared comfortable. PMH is significant for HTN (Amlodipine, Metoprolol, Bumex), AODM (Empagliflozin), RA (Humira, MTX, PRN Meloxicam), obesity (5 ft 11 in, BMI 36), hepatic steatosis and a remote h/o kidney stones. Allergies Allergy/AdvReac Type Severity Reaction Status Date / Time Penicillins Allergy Mild RASH Verified 05/20/23 09:04 lisinopril AdvReac Mild COUGH Verified 05/20/23 09:04 losartan AdvReac Mild Cough Verified 05/20/23 09:04 Home Medications Medication Instructions Recorded Confirmed Type adalimumab 40 mg/0.8 mL 40 mg subcut Q14D 04/20/19 05/20/23 History subcutaneous syringe kit (Humira) meloxicam 7.5 mg tablet 7.5 mg PO DAILY PRN Pain 07/29/19 05/20/23 History metoprolol succinate 50 mg capsule 50 mg PO QPM 11/05/19 05/20/23 History sprinkle, ext. release 24 hr amlodipine 5 mg tablet 5 mg PO QPM 04/23/21 05/20/23 History ergocalciferol (vitamin D2) 1,250 1,250 mcg PO .COMPLEX #12 caps 10/09/22 05/20/23 Rx mcg (50,000 unit) capsule bumetanide 1 mg tablet 1 mg PO BID #180 tabs 02/10/23 05/20/23 Rx semaglutide 2 mg/dose (8 mg/3 mL) 2 mg (0.75 mL) subcut .weekly #3 mL 03/05/23 05/20/23 Rx subcutaneous pen injector (Ozempic) dutasteride 0.5 mg capsule 0.5 mg PO QAM 04/25/23 05/20/23 History folic acid 1 mg tablet 1 mg PO UD 04/25/23 05/20/23 History gabapentin 300 mg capsule 300 mg PO UD 04/25/23 05/20/23 History methotrexate sodium 2.5 mg tablet 2.5 mg PO UD 04/25/23 05/20/23 History amitriptyline 25 mg tablet 25 mg PO HS 05/05/23 05/20/23 History cyanocobalamin (vitamin B-12) 1,000 mcg PO DAILY 05/05/23 05/20/23 History 1,000 mcg tablet empagliflozin 10 mg tablet 10 mg PO QAM 05/05/23 05/20/23 History potassium chloride 10 mEq 10 meq PO BID 05/05/23 05/20/23 History capsule,extended release rosuvastatin 10 mg tablet 10 mg PO QPM 07/31/23 08/15/23 History Patient History Medical History (Updated 05/20/23 @ 19:37 by Lito Yusuf MD) Arthritis BPH with obstruction/lower urinary tract symptoms Diabetes mellitus, type 2 Fair controlled per patient Hyperlipidemia Hypertension Kidney mass Peripheral neuropathy Noted to LEs Sleep apnea cpap Surgical History (Updated 05/20/23 @ 19:30 by Lito Yusuf MD) H/O bilateral cataract extraction H/O excision of dermoid cyst H/O foot surgery rt H/O wrist surgery left History of arthroscopy left/rt knee History of colonoscopy History of tooth extraction Family History Father Rheumatoid arthritis Ankylosing spondylitis Sister Ankylosing spondylitis Mother Diabetes Cardiac disorder Other No family history of adverse response to anesthesia Social History Smoking Status: Current some day smoker Tobacco Type: Cigars Smoking End Date: occas. 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 Beliefs That Will Affect Care: None marital status: Current Living Situation: Spouse Feels Safe at Home: Yes Safety Concerns: Feels Safe At This Time Dental Care, Regularly: Yes Seatbelt Use: always Sunscreen Use: Yes Assistive Devices: CPAP Review of Systems Constitutional: no fever Eyes: no worsening vision Ear, Nose, Mouth, Throat: no problem reported Respiratory: no dyspnea Cardiovascular: no chest pain Gastrointestinal: no abdominal pain, no nausea, no vomiting and no diarrhea/loose stools Genitourinary: no urinary hesitancy or no hematuria Integumentary: no rash Physical Exam Constitutional: not in distress Eyes: PERRL, conjunctivae normal, anicteric sclerae ENMT: external ear and nose normal, oropharynx normal Neck: trachea midline, no thyromegaly Respiratory: normal respiratory effort, lungs clear to auscultation Cardiovascular: RRR, no murmur, no edema Gastrointestinal (Abdomen): Inspection/Auscultation: + hypoactive bowel sounds Percussion/Palpation: abdomen soft Skin: no rashes, warm and dry Neurologic: Speech / Cognition: normal speech and normal cognition Psychiatric: Affect: euthymic affect Results & Data Vital Signs (Past 12 Hours) Vital Signs Temp Pulse Pulse Resp BP BP Pulse Ox 05/20/23 18:00 36.7 C 66 16 115/57 L 95 05/20/23 16:57 36.5 C 73 18 135/65 94 05/20/23 15:00 05/20/23 15:55 36.5 C 64 16 128/65 99 05/20/23 15:30 36.5 C 65 16 133/65 97 05/20/23 15:03 36.6 C 67 16 129/61 91 05/20/23 14:50 36.6 C 62 16 117/60 94 05/20/23 14:40 63 18 116/59 L 94 05/20/23 14:30 64 20 117/58 L 96 05/20/23 14:20 65 20 112/56 L 97 05/20/23 14:13 36.5 C 68 19 109/63 96 05/20/23 09:11 36.6 C 82 20 178/81 H 198/93 H 98 O2 Del Method O2 Flow Rate 05/20/23 18:00 Nasal Cannula 2 05/20/23 16:57 Nasal Cannula 2 05/20/23 15:00 Nasal Cannula 2 05/20/23 15:55 Nasal Cannula 2 05/20/23 15:30 Nasal Cannula 2 05/20/23 15:03 Nasal Cannula 2 05/20/23 14:50 Nasal Cannula 2 05/20/23 14:40 Nasal Cannula 2 05/20/23 14:30 Oxymask 9 05/20/23 14:20 Oxymask 9 05/20/23 14:13 Oxymask 9 05/20/23 09:11 Room Air Laboratory Results Laboratory Results WBC 9.35 K/ul (4.8-10.8) 05/20/23 14:19 RBC 3.82 M/uL (4.70-6.10) L 05/20/23 14:19 Hgb 12.2 g/dl (14.0-18.0) L 05/20/23 14:19 Hct 35.3 % (42.0-52.0) L 05/20/23 14:19 MCV 92.4 fL (80.0-100.0) 05/20/23 14:19 MCH 31.9 pg (25.0-34.0) 05/20/23 14:19 MCHC 34.6 g/dL (32.0-36.0) 05/20/23 14:19 RDW Std Deviation 42.5 fL (36.4-46.3) 05/20/23 14:19 RDW Coeff of Maricarmen 12.7 % (11.5-14.5) 05/20/23 14:19 Plt Count 156 K/uL (130-400) 05/20/23 14:19 MPV 9.0 fL (9.4-12.4) L 05/20/23 14:19 Immature Gran % (Auto) 0.4 % 05/20/23 14:19 Neut % (Auto) 90.5 % 05/20/23 14:19 Lymph % (Auto) 7.4 % 05/20/23 14:19 Allen % (Auto) 0.9 % 05/20/23 14:19 Eos % (Auto) 0.5 % 05/20/23 14:19 Baso % (Auto) 0.3 % 05/20/23 14:19 Neut # (Auto) 8.46 K/uL (1.40-6.50) H 05/20/23 14:19 Lymph # (Auto) 0.69 K/uL (1.2-3.4) L 05/20/23 14:19 Allen # (Auto) 0.08 K/uL (0.11-0.59) L 05/20/23 14:19 Eos # (Auto) 0.05 K/uL (0-0.50) 05/20/23 14:19 Baso # (Auto) 0.03 K/uL (0-0.2) 05/20/23 14:19 Immature Gran # (Auto) 0.04 K/uL (0.01-0.20) 05/20/23 14:19 Sodium 139 mmol/L (136-145) 05/20/23 14:19 Potassium 3.8 mmol/L (3.5-5.1) 05/20/23 14:19 Chloride 108 mmol/L (98-107) H 05/20/23 14:19 Carbon Dioxide 24 mmol/L (21-32) 05/20/23 14:19 Anion Gap 7 (3-11) 05/20/23 14:19 BUN 24 mg/dl (6-23) H 05/20/23 14:19 Creatinine 2.46 mg/dl (0.6-1.4) H 05/20/23 14:19 Est Cr Clr Drug Dosing 35.0 ml/min 05/20/23 14:19 Est GFR ( Amer) 29.2 ml/min 05/20/23 14:19 Est GFR (Non-Af Amer) 25.2 ml/min 05/20/23 14:19 BUN/Creatinine Ratio 9.8 (10-20) L 05/20/23 14:19 Glucose 249 mg/dl (70-99(Fasting)) H 05/20/23 14:19 POC Glucose 255 mg/dl (70-99) H 05/20/23 16:32 Calcium 8.1 mg/dl (8.6-10.3) L 05/20/23 14:19 PG Care Time/CCT Total # of Minutes Spent Total Time Spent with Patient: Total time spent is greater than 50% in coordination of care (as documented) at patient's floor/unit and/or counseling patient: Coding Level of Care Code 73917 IN/OBS CONSULT LVL 5,80M Diagnoses CKD stage 4 due to type 2 diabetes mellitus E11.22; N18.4 Hypertension I10 Kidney mass N28.89 Type 2 diabetes mellitus E11.9 Arthritis M19.90
[2023-05-20] MEDS: ROSUVASTATIN CALCIUM 10 MG TAB PO SCH (20:13)
[2023-05-20] MEDS: METOPROLOL SUCC 50MG EXT REL TAB PO SCH (20:13)
[2023-05-20] MEDS: HEPARIN SOD 5,000 UNIT/0.5 ML VIAL SQ SCH (20:13)
[2023-05-20] MEDS: DOCUSATE SODIUM 100 MG CAP PO SCH (20:14)
[2023-05-20] MEDS: amLODIPine BESYLATE 5 MG TAB PO SCH (20:14)
[2023-05-20] MEDS: AMITRIPTYLINE HCL 25 MG TAB PO SCH (20:14)
[2023-05-20] MEDS ORDERED: GABAPENTIN 600 MG TAB PO SCH (21:00)
[2023-05-20] MEDS ORDERED: POTASSIUM CHLORIDE 10 MEQ TABCR PO SCH (21:00)
[2023-05-21] MEDS: INSULIN ASPART PER UNIT CHARGE SC SCH ×6 (00:10→20:21)
[2023-05-21] MEDS: SODIUM CHLORIDE 0.9% 1000ML 1,000 ML IV SCH ×3 (01:45→21:21)
[2023-05-21 03:57] LABS: Appearance Urine Cloudy (Clear); Bacteria Urine Automated Negative (Negative); Bilirubin Urine Negative (Negative); Blood Urine 3+ (Negative); Color Urine Yellow; Epithelial Cell Urine Auto 0-5 /lpf (0-5); Glucose Urine UA 3+ (Negative); Ketones Urine Negative (Negative); Leukocyte Esterase Urine Negative (Negative); Nitrite Urine Negative (Negative); Protein Urine 3+ (Negative); RBC Urine Automated >30 /hpf (0-4); Specific Gravity Urine 1.023 (1.000-1.030); Urobilinogen Urine Negative (Negative); pH Urine 5.5 (4.5-7.5)
[2023-05-21] MEDS: ceFAZolin 2000MG 2,000 MG/15 ML SYR IV SCH (04:05)
[2023-05-21] MEDS: ACETAMINOPHEN 325 MG TAB PO SCH ×4 (04:05→21:22)
[2023-05-21 04:49] LABS: Creatinine Urine Random 107.5 mg/dl; Protein Creatinine Ratio Urine 3.3 (0-0.2)
[2023-05-21] MEDS ORDERED: ceFAZolin 2000MG 2,000 MG/15 ML SYR IV SCH (06:00)
[2023-05-21 06:21] LABS: Basophils # (auto) 0.01 K/uL (0-0.2); Basophils % (auto) 0.1 %; Hematocrit (blood only) 32.1 % (42.0-52.0); Hemoglobin 11.2 g/dl (14.0-18.0); Immature Granulocytes # (auto) 0.04 K/uL (0.01-0.20); Immature Granulocytes % (auto) 0.3 %; Lymphocytes # (auto) 0.67 K/uL (1.2-3.4); Mean Corpuscular Hemoglobin 32.3 pg (25.0-34.0); Mean Corpuscular Hgb Conc 34.9 g/dL (32.0-36.0); Mean Corpuscular Volume 92.5 fL (80.0-100.0); Mean Platelet Volume 8.9 fL (9.4-12.4); Monocytes # (auto) 0.69 K/uL (0.11-0.59); Monocytes % (auto) 5.1 %; Neutrophils # (auto) 12.11 K/uL (1.40-6.50); Neutrophils % (auto) 89.5 %; Platelet Count 155 K/uL (130-400); RDW Standard Deviation 42.2 fL (36.4-46.3); Red Blood Count 3.47 M/uL (4.70-6.10); White Blood Count 13.52 K/ul (4.8-10.8)
[2023-05-21 06:34] LABS: BUN Creatinine Ratio 9.5 (10-20); Calcium 8.3 mg/dl (8.6-10.3); Creatinine Clr Calc Pharmacy 25.6 ml/min; Est GFR (Non-African American) 17.3 ml/min; Potassium 3.9 mmol/L (3.5-5.1)
--- NOTE | 2023-05-21 08:23 | Nephrology Progress Note ---
Date of Service May 21, 2023 Assessment & Plan (1) CKD stage 4 due to type 2 diabetes mellitus: Plan: * Baseline Cr has risen to 3.3. Electrolyte balance is acceptable. No uremic symptoms * Rise in Cr is expected following L radical nephrectomy * PRP, CBC in am. 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 Martinez was evaluated in his hospital room this morning. He was sitting up in a chair, tolerating a liquid diet. He hopes to have the Beal catheter removed later this morning. His discomfort is fairly well controlled. He reports passing flatus. Review of Systems Constitutional: no fever Eyes: no worsening vision Ear, Nose, Mouth, Throat: no problem reported Respiratory: no dyspnea Cardiovascular: no chest pain Gastrointestinal: no abdominal pain, no nausea, no vomiting and no di arrhea/loose stools Genitourinary: no urinary hesitancy or no hematuria Integumentary: no rash Physical Exam Constitutional: not in distress Eyes: PERRL, conjunctivae normal, anicteric sclerae ENMT: external ear and nose normal, oropharynx normal Neck: trachea midline, no thyromegaly Respiratory: normal respiratory effort, lungs clear to auscultation Cardiovascular: RRR, no murmur, no edema Gastrointestinal (Abdomen): Inspection/Auscultation: + hypoactive bowel sounds Percussion/Palpation: abdomen soft Skin: no rashes, warm and dry Neurologic: Speech / Cognition: normal speech and normal cognition Psychiatric: Affect: euthymic affect Results & Data Vital Signs (Past 12 Hours) Vital Signs Temp Pulse Resp BP BP Pulse Ox O2 Del Method 05/21/23 08:05 37.0 C 67 16 129/72 97 Room Air 05/21/23 03:55 36.7 C 70 18 133/64 94 Nasal Cannula 05/20/23 22:57 36.9 C 74 18 128/63 94 Nasal Cannula 05/20/23 20:35 Nasal Cannula O2 Flow Rate 05/21/23 08:05 05/21/23 03:55 2 05/20/23 22:57 2 05/20/23 20:35 2 Laboratory Results Laboratory Tests 05/21/23 05/21/23 05/21/23 05:56 05:56 Unknown WBC 13.52 H Hgb 11.2 L Hct 32.1 L Plt Count 155 Sodium 139 Potassium 3.9 Chloride 106 Carbon Dioxide 26 BUN 32 H Creatinine 3.36 H D Glucose 139 H Calcium 8.3 L Urine Appearance Cloudy A Ur Specific [place] 1.023 Urine Protein 3+ H Urine Glucose (UA) 3+ H Urine Ketones Negative Urine Blood 3+ H Ur Leukocyte Esterase Negative Urine RBC (Auto) >30 H U Hyaline Cast (Auto) 1-5 Protein/Creatinin Ratio 05/21/23 Unknown WBC Hgb Hct Plt Count Sodium Potassium Chloride Carbon Dioxide BUN Creatinine Glucose Calcium Urine Appearance Ur Specific [place] Urine Protein Urine Glucose (UA) Urine Ketones Urine Blood Ur Leukocyte Esterase Urine RBC (Auto) U Hyaline Cast (Auto) Protein/Creatinin Ratio 3.3 H PG Care Time/CCT Total # of Minutes Spent Total Time Spent with Patient: Total time spent is greater than 50% in coordination of care (as documented) at patient's floor/unit and/or counseling patient: Coding Level of Care Code 99817 SUB INP/OBS CARE 3/50MIN Diagnoses CKD stage 4 due to type 2 diabetes mellitus E11.22; N18.4 Hypertension I10 Kidney mass N28.89 Type 2 diabetes mellitus E11.9 Arthritis M19.90
[2023-05-21] MEDS: GABAPENTIN 300 MG CAP PO SCH (08:29)
[2023-05-21] MEDS: DOCUSATE SODIUM 100 MG CAP PO SCH ×2 (08:29→21:22)
[2023-05-21] MEDS: FOLIC ACID 1 MG TAB PO SCH (08:29)
[2023-05-21] MEDS: CYANOCOBALAMIN (B-12) 500 MCG TABLET PO SCH (08:29)
[2023-05-21] MEDS: FINASTERIDE 5 MG TAB PO SCH (08:29)
[2023-05-21] MEDS: HEPARIN SOD 5,000 UNIT/0.5 ML VIAL SQ SCH ×2 (08:29→21:22)
[2023-05-21] MEDS: oxyCODONE HCL IR 5 MG TAB (IMMEDIATE RELEASE) PO PRN ×3 (08:40→20:17)
[2023-05-21] MEDS ORDERED: LANTUS PER UNIT CHARGE SC SCH (09:00)
[2023-05-21] MEDS ORDERED: ERGOCALCIFEROL 50,000 UNITS 1250 MCG CAP PO SCH (09:00)
--- NOTE | 2023-05-21 09:41 | Urology Progress Note ---
Date of Service May 21, 2023 Assessment & Plan (1) H/O left radical nephrectomy: (2) Kidney mass: Plan Postop day #1 status post left radical nephrectomy Progressing appropriately thus far We will have to monitor his lab work closely given his underlying CKD Beal catheter out this morning Appreciate Dr. Yusuf's assistance Admission and Anticipated Discharge Date Admission Date: May 20, 2023 Subjective Doing quite well on postoperative day #1 Has expected levels of pain He has been out of bed His Beal catheter still present His creatinine has risen to 3.3, as expected Consultation from Dr. Yusuf yesterday is very much appreciated Hemodynamically stable Drop in hemoglobin is anticipated given the size of his specimen, minimal actual blood loss during surgery Physical Exam Physical Exam: Incisions okay Abdomen soft Urine clear Results & Data Vital Signs (Past 12 Hours) Vital Signs Temp Pulse Resp BP BP Pulse Ox O2 Del Method 05/21/23 08:05 37.0 C 67 16 129/72 97 Room Air 05/21/23 03:55 36.7 C 70 18 133/64 94 Nasal Cannula 05/20/23 22:57 36.9 C 74 18 128/63 94 Nasal Cannula O2 Flow Rate 05/21/23 08:05 05/21/23 03:55 2 05/20/23 22:57 2 PG Care Time/CCT Total # of Minutes Spent Total Time Spent with Patient: Total time spent is greater than 50% in coordination of care (as documented) at patient's floor/unit and/or counseling patient: Coding Level of Care Code None Diagnoses H/O left radical nephrectomy Z90.5 Kidney mass N28.89
--- NOTE | 2023-05-21 12:23 | Pharmacy Report ---
Pharmacy Glycemic Short Note 2 - Date of Service May 21, 2023 - Glycemic Short BSG Results (Last 24 hours): 05/20/23 05/20/23 05/20/23 14:15 14:19 16:32 Glucose 249 H POC Glucose 232 H 255 H 05/20/23 05/20/23 05/21/23 20:15 20:17 00:00 Glucose POC Glucose > 600 H* 226 H 202 H 05/21/23 05/21/23 05/21/23 03:53 05:56 07:40 Glucose 139 H POC Glucose 147 H 144 H 05/21/23 11:35 Glucose POC Glucose 157 H OUTPATIENT ANTIDIABETIC REGIMEN: * Jardiance 10mg PO Daily * Ozempic 2mg SQ Weekly, last dose 05/13/23 ASSESSMENT: * Postop day #1 status post left radical nephrectomy, type 2 diabetic, received 12mg IV Dexamethasone yesterday preop, given 45 units of Lantus post-op. * Blood sugars better controlled today, decrease basal as steroids wearing off, continue NovoLog parameters at this time. * Pt is maintained on oral and non-insulin SQ antidiabetic agents as an outpatient * Oral/SQ agents are not recommended for inpatient use d/t drug interactions, changing PO intake, and difficulty titrating for acute hyper/hypoglycemia. ADA recommends re-initiating outpatient oral agents 1-2 days prior to discharge if/when appropriate if they were held on admission. * Hold oral/SQ agents for admission and utilize SQ basal bolus insulin regimen which is the recommended regimen for inpatient glycemic control. * Weight based insulin dosing for insulin gabriel patient and titrate based on BSG trends. PLAN FOR INPATIENT GLYCEMIC CONTROL: * Hold outpatient diabetes medications * Basal insulin * Lantus 30 units SQ daily * Bolus insulin * NovoLog per scale ACHS or Q6hrs while NPO * Goal Range: Low 110 mg/dL - High 140 mg/dL * Correction Factor: 15 mg/dL/unit * Nutritional / Prandial insulin per carb ratio of 1 unit per 5 grams CHO consumed
[2023-05-21] MEDS: MoRPHine SULFATE 2 MG/ML CARP IV PRN ×2 (16:07→21:25)
[2023-05-21] MEDS: ROSUVASTATIN CALCIUM 10 MG TAB PO SCH (21:22)
[2023-05-21] MEDS: AMITRIPTYLINE HCL 25 MG TAB PO SCH (21:22)
[2023-05-21] MEDS: METOPROLOL SUCC 50MG EXT REL TAB PO SCH (21:23)
[2023-05-21] MEDS: amLODIPine BESYLATE 5 MG TAB PO SCH (21:23)
[2023-05-22] MEDS: ACETAMINOPHEN 325 MG TAB PO SCH ×4 (04:18→20:22)
[2023-05-22] MEDS: SODIUM CHLORIDE 0.9% 1000ML 1,000 ML IV SCH ×2 (06:59→16:46)
[2023-05-22 07:28] LABS: Basophils # (auto) 0.01 K/uL (0-0.2); Basophils % (auto) 0.1 %; Hematocrit (blood only) 31.1 % (42.0-52.0); Hemoglobin 10.7 g/dl (14.0-18.0); Immature Granulocytes # (auto) 0.07 K/uL (0.01-0.20); Immature Granulocytes % (auto) 0.5 %; Lymphocytes # (auto) 1.03 K/uL (1.2-3.4); Lymphocytes % (auto) 7.9 %; Mean Corpuscular Hemoglobin 31.9 pg (25.0-34.0); Mean Corpuscular Hgb Conc 34.4 g/dL (32.0-36.0); Mean Corpuscular Volume 92.8 fL (80.0-100.0); Mean Platelet Volume 9.2 fL (9.4-12.4); Monocytes # (auto) 0.98 K/uL (0.11-0.59); Monocytes % (auto) 7.5 %; Neutrophils # (auto) 10.97 K/uL (1.40-6.50); Platelet Count 159 K/uL (130-400); RDW Coefficient of Variation 13.2 % (11.5-14.5); RDW Standard Deviation 44.4 fL (36.4-46.3); Red Blood Count 3.35 M/uL (4.70-6.10); White Blood Count 13.06 K/ul (4.8-10.8)
[2023-05-22] MEDS: MoRPHine SULFATE 2 MG/ML CARP IV PRN (07:39)
--- NOTE | 2023-05-22 07:49 | Urology Progress Note ---
Date of Service May 22, 2023 Assessment & Plan (1) Kidney mass: (2) H/O left radical nephrectomy: Plan: POD #2 s/p left radical nephrectomy for suspected renal malignancy Afebrile and hemodynamically stable Labs reviewedcreatinine increased to 3.95, WBC 13.06, hemoglobin 10.7 Tolerating PO diet Voiding without difficulty since catheter removal Incisions appropriate Continue ambulation Nephrology following - appreciate assistance and recommendations - No acute need for HD this am - Plan is to repeat PRP this afternoon and in am - Vascular surgery consultation if creatinine rises to 5.0 or above Anticipate discharge to home maybe tomorrow pending lab work/clinical course Admission and Anticipated Discharge Date Admission Date: May 20, 2023 Subjective Patient seen and examined at bedside this morning, chart reviewed Subjectively doing pretty well Feels like he needs to get more rest today Has some mild discomfort near incisions, pain adequately controlled Beal catheter removed yesterday, voiding spontaneously without difficulty since removal He has been ambulating Tolerating diet, no nausea or vomiting No fever or chills Review of Systems Constitutional: as per Subjective / HPI Gastrointestinal: as per Subjective / HPI Genitourinary: + as per Subjective / HPI Physical Exam Constitutional: well developed, well nourished and + obese; no acute distress Respiratory: normal respiratory effort; no respiratory distress and no labored breathing Cardiovascular: Extremities: no pedal edema Gastrointestinal (Abdomen): Inspection/Auscultation: abdomen not distended Percussion/Palpation: abdomen soft Musculoskeletal: Head/Neck/Chest: normocephalic and head atraumatic Skin: Incisions C/D/I with dermabond Neurologic: moves all extremities and awake Psychiatric: Orientation: alert and oriented x 3 Results & Data Vital Signs (Past 12 Hours) Vital Signs Temp Pulse Resp BP BP Pulse Ox O2 Del Method 05/22/23 07:29 37.1 C 62 18 145/68 H 93 Room Air 05/21/23 21:23 36.6 C 65 14 125/65 93 Room Air PG Care Time/CCT Total # of Minutes Spent Total Time Spent with Patient: Total time spent is greater than 50% in coordination of care (as documented) at patient's floor/unit and/or counseling patient: Coding Level of Care Code None Diagnoses Kidney mass N28.89 H/O left radical nephrectomy Z90.5
[2023-05-22 07:50] LABS: BUN Creatinine Ratio 12.4 (10-20); Calcium 8.1 mg/dl (8.6-10.3); Creatinine Clr Calc Pharmacy 21.8 ml/min; Est GFR (African American) 16.5 ml/min; Est GFR (Non-African American) 14.2 ml/min; Potassium 4.1 mmol/L (3.5-5.1)
[2023-05-22] MEDS: INSULIN ASPART PER UNIT CHARGE SC SCH ×4 (08:13→21:53)
[2023-05-22] MEDS: LANTUS PER UNIT CHARGE SC SCH (08:13)
[2023-05-22] MEDS: GABAPENTIN 300 MG CAP PO SCH (08:14)
[2023-05-22] MEDS: DOCUSATE SODIUM 100 MG CAP PO SCH ×2 (08:14→20:22)
[2023-05-22] MEDS: HEPARIN SOD 5,000 UNIT/0.5 ML VIAL SQ SCH ×2 (08:14→20:23)
[2023-05-22] MEDS: CYANOCOBALAMIN (B-12) 500 MCG TABLET PO SCH (08:14)
[2023-05-22] MEDS: FINASTERIDE 5 MG TAB PO SCH (08:14)
--- NOTE | 2023-05-22 08:31 | Nephrology Progress Note ---
Date of Service May 22, 2023 Assessment & Plan (1) CKD stage 4 due to type 2 diabetes mellitus: Plan: * Baseline Cr has risen to 3.9. Electrolyte balance is acceptable. No uremic symptoms * PRP, CBC in am. Monitor UO * KCl, Bumetanide stopped and Gabapentin dose reduced due to CKD * Discussed rise in Cr w/ Mr. Martinez this morning. Reviewed CKD staging. Explained that remaining kidney may not have adequate function and [facility] SPECIALIST may become necessary. He voiced understanding. Reviewed HD vascular access. Fortunately, no acute indication for HD this morning. Will repeat PRP this afternoon and in am. If Cr increases to 5.0 or above, may need to consider V ascular Surgery evaluation for IJ TCC insertion. 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 Martinez was evaluated in his hospital room this morning. He denied fever, dyspnea or uremic symptoms. Review of Systems Constitutional: no fever Eyes: no worsening vision Ear, Nose, Mouth, Throat: no problem reported Respiratory: no dyspnea Cardiovascular: no chest pain Gastrointestinal: no abdominal pain, no nausea, no vomiting and no diarrhea/loose stools Genitourinary: no urinary hesitancy or no hematuria Integumentary: no rash Physical Exam Constitutional: not in distress Eyes: PERRL, conjunctivae normal, anicteric sclerae ENMT: external ear and nose normal, oropharynx normal Neck: trachea midline, no thyromegaly Respiratory: normal respiratory effort, lungs clear to auscultation Cardiovascular: RRR, no murmur, no edema Gastrointestinal (Abdomen): Inspection/Auscultation: + hypoactive bowel sounds Percussion/Palpation: abdomen soft Skin: no rashes, warm and dry Neurologic: Speech / Cognition: normal speech and normal cognition Psychiatric: Affect: euthymic affect Results & Data Vital Signs (Past 12 Hours) Vital Signs Temp Pulse Resp BP BP Pulse Ox O2 Del Method 05/22/23 07:29 37.1 C 62 18 145/68 H 93 Room Air 05/21/23 21:23 36.6 C 65 14 125/65 93 Room Air Laboratory Results Laboratory Tests 05/22/23 05/22/23 06:26 06:26 WBC 13.06 H Hgb 10.7 L Hct 31.1 L Plt Count 159 Sodium 136 Potassium 4.1 Chloride 104 Carbon Dioxide 26 BUN 49 H Creatinine 3.95 H D Glucose 108 H PG Care Time/CCT Total # of Minutes Spent Total Time Spent with Patient: Total time spent is greater than 50% in coordination of care (as documented) at patient's floor/unit and/or counseling patient: Coding Level of Care Code 16395 SUB INP/OBS CARE 3/50MIN Diagnoses CKD stage 4 due to type 2 diabetes mellitus E11.22; N18.4 Hypertension I10 Kidney mass N28.89 Type 2 diabetes mellitus E11.9 Arthritis M19.90
[2023-05-22] MEDS ORDERED: COUGH DROP (SUGAR FREE) LOZ 24 LOZ/1 BOX BUCCAL PRN (09:44)
--- NOTE | 2023-05-22 09:55 | Pharmacy Report ---
Pharmacy Glycemic Short Note 2 - Date of Service May 22, 2023 - Glycemic Short BSG Results (Last 24 hours): 05/21/23 05/21/23 05/21/23 11:35 17:11 19:58 Glucose POC Glucose 157 H 102 H 78 05/22/23 05/22/23 06:26 07:32 Glucose 108 H POC Glucose 104 H OUTPATIENT ANTIDIABETIC REGIMEN: * Jardiance 10mg PO Daily * Ozempic 2mg SQ Weekly, last dose 05/13/23 ASSESSMENT: 05/22/23 * Blood sugars at goal all day yesterday and this morning, trending on lower side, will decrease basal and loosen NovoLog parameters at this time to prevent hypoglycemia. 05/21/23 * Postop day #1 status post left radical nephrectomy, type 2 diabetic, received 12mg IV Dexamethasone yesterday preop, given 45 units of Lantus post-op. * Blood sugars better controlled today, decrease basal as steroids wearing off, continue NovoLog parameters at this time. * Pt is maintained on oral and non-insulin SQ antidiabetic agents as an outpatient * Oral/SQ agents are not recommended for inpatient use d/t drug interactions, changing PO intake, and difficulty titrating for acute hyper/hypoglycemia. ADA recommends re-initiating outpatient oral agents 1-2 days prior to discharge if/when appropriate if they were held on admission. * Hold oral/SQ agents for admission and utilize SQ basal bolus insulin regimen which is the recommended regimen for inpatient glycemic control. * Weight based insulin dosing for insulin gabriel patient and titrate based on BSG trends. PLAN FOR INPATIENT GLYCEMIC CONTROL: * Hold outpatient diabetes medications * Basal insulin - decrease * Lantus 20 units SQ daily * Bolus insulin * NovoLog per scale ACHS or Q6hrs while NPO * Goal Range: Low 110 mg/dL - High 140 mg/dL * loosen: Correction Factor: 20 mg/dL/unit * loosen: Nutritional / Prandial insulin per carb ratio of 1 unit per 6 grams CHO consumed
[2023-05-22] MEDS: oxyCODONE HCL IR 5 MG TAB (IMMEDIATE RELEASE) PO PRN ×2 (12:34→20:22)
[2023-05-22 15:56] LABS: BUN Creatinine Ratio 12.8 (10-20); Creatinine Clr Calc Pharmacy 21.6 ml/min; Est GFR (African American) 16.3 ml/min; Est GFR (Non-African American) 14.1 ml/min
[2023-05-22] MEDS: ROSUVASTATIN CALCIUM 10 MG TAB PO SCH (20:22)
[2023-05-22] MEDS: amLODIPine BESYLATE 5 MG TAB PO SCH (20:23)
[2023-05-22] MEDS: AMITRIPTYLINE HCL 25 MG TAB PO SCH (20:23)
[2023-05-22] MEDS: METOPROLOL SUCC 50MG EXT REL TAB PO SCH (20:23)
[2023-05-23] MEDS: ACETAMINOPHEN 325 MG TAB PO SCH ×4 (02:20→22:01)
[2023-05-23] MEDS: SODIUM CHLORIDE 0.9% 1000ML 1,000 ML IV SCH (02:20)
[2023-05-23 06:39] LABS: Basophils # (auto) 0.03 K/uL (0-0.2); Basophils % (auto) 0.3 %; Eosinophils # (auto) 0.13 K/uL (0-0.50); Eosinophils % (auto) 1.3 %; Hematocrit (blood only) 30.6 % (42.0-52.0); Hemoglobin 10.2 g/dl (14.0-18.0); Immature Granulocytes # (auto) 0.06 K/uL (0.01-0.20); Immature Granulocytes % (auto) 0.6 %; Lymphocytes # (auto) 1.44 K/uL (1.2-3.4); Lymphocytes % (auto) 14.3 %; Mean Corpuscular Hemoglobin 31.4 pg (25.0-34.0); Mean Corpuscular Hgb Conc 33.3 g/dL (32.0-36.0); Mean Corpuscular Volume 94.2 fL (80.0-100.0); Mean Platelet Volume 9.3 fL (9.4-12.4); Monocytes % (auto) 9.9 %; Neutrophils # (auto) 7.44 K/uL (1.40-6.50); Neutrophils % (auto) 73.6 %; Platelet Count 143 K/uL (130-400); RDW Coefficient of Variation 13.4 % (11.5-14.5); Red Blood Count 3.25 M/uL (4.70-6.10)
[2023-05-23 06:51] LABS: Prothrombin Time 10.6 Seconds (9.0-12.0)
[2023-05-23] MEDS: FINASTERIDE 5 MG TAB PO SCH (07:56)
[2023-05-23] MEDS: FOLIC ACID 1 MG TAB PO SCH (07:56)
[2023-05-23] MEDS: DOCUSATE SODIUM 100 MG CAP PO SCH ×2 (07:56→20:08)
[2023-05-23] MEDS: GABAPENTIN 300 MG CAP PO SCH (07:56)
[2023-05-23] MEDS: HEPARIN SOD 5,000 UNIT/0.5 ML VIAL SQ SCH ×2 (07:57→20:08)
[2023-05-23] MEDS: CYANOCOBALAMIN (B-12) 500 MCG TABLET PO SCH (07:57)
[2023-05-23 08:03] LABS: BUN Creatinine Ratio 12.4 (10-20); Creatinine Clr Calc Pharmacy 20.9 ml/min; Est GFR (African American) 15.7 ml/min; Est GFR (Non-African American) 13.6 ml/min; Potassium 3.8 mmol/L (3.5-5.1)
[2023-05-23] MEDS: oxyCODONE HCL IR 5 MG TAB (IMMEDIATE RELEASE) PO PRN ×2 (08:05→12:12)
[2023-05-23] MEDS: INSULIN ASPART PER UNIT CHARGE SC SCH ×4 (08:06→21:32)
[2023-05-23] MEDS: LANTUS PER UNIT CHARGE SC SCH ×2 (08:09→08:23)
--- NOTE | 2023-05-23 08:51 | Urology Progress Note ---
Date of Service May 23, 2023 Assessment & Plan (1) Kidney mass: (2) H/O left radical nephrectomy: (3) CKD stage 4 due to type 2 diabetes mellitus: Plan POD #3 s/p left radical nephrectomy for suspected renal malignancy Afebrile and hemodynamically stable Labs reviewedcreatinine increased to 4.11, WBC 10.10, hemoglobin 10.2 Tolerating PO diet Voiding without difficulty since catheter removal Minimal pain Incisions appropriate Continue ambulation Nephrology following - appreciate assistance and recommendations Outpatient follow-up scheduled on the Overall patient feels well, however he would like to stay 1 more night and potentially go home tomorrow morning He is currently on 2 L nasal cannula because of a 90% oxygen saturation but does not feel short of breath Has been ambulating Admission and Anticipated Discharge Date Admission Date: May 20, 2023 Supervising Physician Co-Signing Physician Notes Please see above Plan for stay overnight and discharge home tomorrow Creatinine appears to have plateaued Outpatient follow-up with myself and nephrology already established 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 Has been on room air when awake. Per nursing - pt reports wearing O2 when sleeping at home. Complains of sore throat, was given lozenges and feeling better this morning Denies CP/SOB Has some mild discomfort near incisions, pain adequately controlled Voiding spontaneously without difficulty since catheter removal He has been ambulating Tolerating diet, no nausea or vomiting No fever or chills + Flatus, no BM Review of Systems Constitutional: as per Subjective / HPI; no fever and no chills Cardiovascular: no chest pain, no dyspnea and no lightheadedness Gastrointestinal: as per Subjective / HPI; no abdominal pain, no nausea and no vomiting Genitourinary: + as per Subjective / HPI; no dysuria or no hematuria Physical Exam Constitutional: well developed, well nourished and + obese; no acute distress Respiratory: normal respiratory effort; no respiratory distress and no labored breathing Cardiovascular: Extremities: no pedal edema Gastrointestinal (Abdomen): Soft, mild tenderness with palpation to LLQ Musculoskeletal: Head/Neck/Chest: normocephalic Skin: Incisions C/D/I with dermabond Mild bruising around left lower incision site Neurologic: moves all extremities and awake Psychiatric: Orientation: alert and oriented x 3 Results & Data Vital Signs (Past 12 Hours) Vital Signs Temp Pulse Resp BP Pulse Ox O2 Del Method O2 Flow Rate 05/23/23 07:29 37.5 C 69 20 156/69 H 90 Nasal Cannula 2 PG Care Time/CCT Total # of Minutes Spent Total Time Spent with Patient: Total time spent is greater than 50% in coordination of care (as documented) at patient's floor/unit and/or counseling patient: Coding Level of Care Code None Diagnoses Kidney mass N28.89 H/O left radical nephrectomy Z90.5 CKD stage 4 due to type 2 diabetes mellitus E11.22; N18.4
--- NOTE | 2023-05-23 09:03 | Nephrology Progress Note ---
Date of Service May 23, 2023 Assessment & Plan (1) CKD stage 4 due to type 2 diabetes mellitus: Plan: * Creatinine is stabilizing at 4.1. Electrolyte balance is acceptable. No uremic symptoms * PRP, CBC in am. Monitor UO * Will stop IVF as patient has developed HTN and mild dyspnea * Will resume Bumex 1 mg po BID * Discussed rise in Cr w/ Mr. Martinez this morning. Explained that kidney function appears to be stabilizing * If Cr increases to 5.0 or above, will need to consider Vascular Surgery evaluation for IJ TCC insertion * If discharge is anticipated, patient has Nephrology follow up already scheduled for 05/29/23 at 11:45 am. Orders for PRP, CBC prior to visit are active in EMR. 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 Martinez was evaluated in his hospital room this morning. He denied fever or uremic symptoms. Mr. Mckee did require O2 at 2 L/min last evening Review of Systems Constitutional: no fever Eyes: no worsening vision Ear, Nose, Mouth, Throat: no problem reported Respiratory: no dyspnea Cardiovascular: no chest pain Gastrointestinal: no abdominal pain, no nausea, no vomiting and no diarrhea/loose stools Genitourinary: no urinary hesitancy or no hematuria Integumentary: no rash Physical Exam Constitutional: not in distress Eyes: PERRL, conjunctivae normal, anicteric sclerae ENMT: external ear and nose normal, oropharynx normal Neck: trachea midline, no thyromegaly Respiratory: normal respiratory effort, lungs clear to auscultation Cardiovascular: RRR, no murmur, no edema Gastrointestinal (Abdomen): Inspection/Auscultation: + hypoactive bowel sounds Percussion/Palpation: abdomen soft Skin: no rashes, warm and dry Neurologic: Speech / Cognition: normal speech and normal cognition Psychiatric: Affect: euthymic affect Results & Data Vital Signs (Past 12 Hours) Vital Signs Temp Pulse Resp BP Pulse Ox O2 Del Method O2 Flow Rate 05/23/23 07:29 37.5 C 69 20 156/69 H 90 Nasal Cannula 2 Laboratory Results Laboratory Tests 05/23/23 05/23/23 05:49 05:49 WBC 10.10 Hgb 10.2 L Hct 30.6 L Plt Count 143 Sodium 138 Potassium 3.8 Chloride 110 H Carbon Dioxide 21 BUN 51 H Creatinine 4.11 H BUN/Creatinine Ratio 12.4 Calcium 8.0 L PG Care Time/CCT Total # of Minutes Spent Total Time Spent with Patient: Total time spent is greater than 50% in coordination of care (as documented) at patient's floor/unit and/or counseling patient: Coding Level of Care Code 75233 SUB INP/OBS CARE 3/50MIN Diagnoses CKD stage 4 due to type 2 diabetes mellitus E11.22; N18.4 Hypertension I10 Kidney mass N28.89 Type 2 diabetes mellitus E11.9 Arthritis M19.90
--- NOTE | 2023-05-23 10:47 | Pharmacy Report ---
Pharmacy Glycemic Short Note 2 - Date of Service May 23, 2023 - Glycemic Short BSG Results (Last 24 hours): 05/22/23 05/22/23 05/22/23 11:42 15:22 16:32 Glucose 129 H POC Glucose 144 H 130 H 05/22/23 05/23/23 05/23/23 20:21 05:49 07:46 Glucose 79 POC Glucose 95 76 OUTPATIENT ANTIDIABETIC REGIMEN: * Jardiance 10mg PO Daily * Ozempic 2mg SQ Weekly, last dose 05/13/23 ASSESSMENT: 05/23/23: * Patient received 20 units of basal and 9 units of bolus insulin yesterday. * BSGs yesterday were well controlled. Fasting BSG today was 76 mg/dl which is slightly lower than expected. Basal dose this AM was decreased to 10 units. * Serum creat worsened further today = 4.11 mg/dl. Patient may not be clearing insulin enough. To prevent hypoglycemia, carb ratio loosened with lunch today. 05/22/23 * Blood sugars at goal all day yesterday and this morning, trending on lower side, will decrease basal and loosen NovoLog parameters at this time to prevent hypoglycemia. 05/21/23 * Postop day #1 status post left radical nephrectomy, type 2 diabetic, received 12mg IV Dexamethasone yesterday preop, given 45 units of Lantus post-op. * Blood sugars better controlled today, decrease basal as steroids wearing off, continue NovoLog parameters at this time. * Pt is maintained on oral and non-insulin SQ antidiabetic agents as an outpatient * Oral/SQ agents are not recommended for inpatient use d/t drug interactions, changing PO intake, and difficulty titrating for acute hyper/hypoglycemia. ADA recommends re-initiating outpatient oral agents 1-2 days prior to discharge if/when appropriate if they were held on admission. * Hold oral/SQ agents for admission and utilize SQ basal bolus insulin regimen which is the recommended regimen for inpatient glycemic control. * Weight based insulin dosing for insulin gabriel patient and titrate based on BSG trends. PLAN FOR INPATIENT GLYCEMIC CONTROL: * Hold outpatient diabetes medications * Basal insulin - decrease * Lantus 10 units SQ daily * Bolus insulin: CR loosened * NovoLog per scale ACHS or Q6hrs while NPO * Goal Range: Low 110 mg/dL - High 140 mg/dL * loosen: Correction Factor: 20 mg/dL/unit * loosen: Nutritional / Prandial insulin per carb ratio of 1 unit per 9 grams CHO consumed
[2023-05-23] MEDS: BUMETANIDE 1 MG TAB PO SCH (16:49)
[2023-05-23] MEDS: AMITRIPTYLINE HCL 25 MG TAB PO SCH (20:07)
[2023-05-23] MEDS: amLODIPine BESYLATE 5 MG TAB PO SCH (20:07)
[2023-05-23] MEDS: METOPROLOL SUCC 50MG EXT REL TAB PO SCH (20:08)
[2023-05-23] MEDS: ROSUVASTATIN CALCIUM 10 MG TAB PO SCH (20:08)
[2023-05-24] MEDS: ACETAMINOPHEN 325 MG TAB PO SCH ×2 (04:46→10:02)
[2023-05-24] MEDS: GABAPENTIN 300 MG CAP PO SCH (07:30)
[2023-05-24] MEDS: FINASTERIDE 5 MG TAB PO SCH (07:31)
[2023-05-24] MEDS: FOLIC ACID 1 MG TAB PO SCH (07:31)
[2023-05-24] MEDS: DOCUSATE SODIUM 100 MG CAP PO SCH (07:31)
[2023-05-24] MEDS: CYANOCOBALAMIN (B-12) 500 MCG TABLET PO SCH (07:32)
[2023-05-24] MEDS: BUMETANIDE 1 MG TAB PO SCH (07:32)
[2023-05-24] MEDS: HEPARIN SOD 5,000 UNIT/0.5 ML VIAL SQ SCH (07:33)
[2023-05-24] MEDS: LANTUS PER UNIT CHARGE SC SCH (07:56)
[2023-05-24] MEDS: INSULIN ASPART PER UNIT CHARGE SC SCH ×2 (07:56→11:53)
--- NOTE | 2023-05-24 08:15 | Urology Progress Note ---
Date of Service May 24, 2023 Assessment & Plan (1) CKD stage 4 due to type 2 diabetes mellitus: (2) Kidney mass: (3) H/O left radical nephrectomy: Plan 72 yo M POD #4 s/p left radical nephrectomy for suspected renal malignancy Afebrile and hemodynamically stable Labs pending Tolerating PO diet Voiding without difficulty since catheter removal Minimal pain Incisions appropriate Continue ambulation Nephrology following - appreciate assistance and recommendations -Assuming ok to d/c from nephrology standpoint, will d/c home later today Outpatient follow-up scheduled on the 24th Admission and Anticipated Discharge Date Admission Date: May 20, 2023 Subjective No acute issues overnight. Afebrile with stable vitals. Labs pending this morning. Reports feeling better. Ambulating and tolerating diet. Voiding spontaneously. Feels comfortable going home later today assuming he is stable from a nephrology standpoint. Review of Systems Review of Systems: 14 point review of systems negative outside of what is listed above in HPI Physical Exam Physical Exam: General: Alert and oriented, no acute distress HEENT: Normocephalic, mucous membranes moist Pulmonary: Nonlabored respirations Abdomen: Nondistended, soft, appropriately tender, port sites and incision clean dry and intact Extremities: Moves all 4 spontaneously Neuro: No gross deficits Skin: Warm, dry, no rashes noted Results & Data Vital Signs (Past 12 Hours) Vital Signs Temp Pulse Resp BP BP Pulse Ox O2 Del Method 05/24/23 07:27 36.6 C 61 16 168/78 H 92 Room Air 05/24/23 05:57 91 Nasal Cannula 05/24/23 05:57 36.5 C 60 16 160/74 H 86 L Room Air 05/23/23 22:39 36.8 C 66 16 162/74 H 92 Nasal Cannula O2 Flow Rate 05/24/23 07:27 05/24/23 05:57 4 05/24/23 05:57 05/23/23 22:39 3 PG Care Time/CCT Total # of Minutes Spent Total Time Spent with Patient: Total time spent is greater than 50% in coordination of care (as documented) at patient's floor/unit and/or counseling patient: Coding Level of Care Code 71725 SUB INP/OBS CARE 2/35MIN Diagnoses CKD stage 4 due to type 2 diabetes mellitus E11.22; N18.4 Kidney mass N28.89 H/O left radical nephrectomy Z90.5
[2023-05-24 08:46] LABS: Basophils # (auto) 0.03 K/uL (0-0.2); Basophils % (auto) 0.4 %; Eosinophils # (auto) 0.33 K/uL (0-0.50); Eosinophils % (auto) 4.2 %; Hematocrit (blood only) 33.7 % (42.0-52.0); Hemoglobin 11.5 g/dl (14.0-18.0); Immature Granulocytes # (auto) 0.03 K/uL (0.01-0.20); Immature Granulocytes % (auto) 0.4 %; Lymphocytes # (auto) 1.37 K/uL (1.2-3.4); Lymphocytes % (auto) 17.6 %; Mean Corpuscular Hemoglobin 31.9 pg (25.0-34.0); Mean Corpuscular Hgb Conc 34.1 g/dL (32.0-36.0); Mean Corpuscular Volume 93.6 fL (80.0-100.0); Mean Platelet Volume 9.3 fL (9.4-12.4); Monocytes # (auto) 0.73 K/uL (0.11-0.59); Monocytes % (auto) 9.4 %; Neutrophils # (auto) 5.28 K/uL (1.40-6.50); Platelet Count 173 K/uL (130-400); RDW Coefficient of Variation 13.2 % (11.5-14.5); RDW Standard Deviation 45.1 fL (36.4-46.3); White Blood Count 7.77 K/ul (4.8-10.8)
[2023-05-24] MEDS ORDERED: LANTUS PER UNIT CHARGE SC SCH (09:00)
[2023-05-24 09:07] LABS: Calcium 8.6 mg/dl (8.6-10.3); Creatinine Clr Calc Pharmacy 20.7 ml/min; Est GFR (African American) 15.5 ml/min; Est GFR (Non-African American) 13.4 ml/min; Potassium 3.8 mmol/L (3.5-5.1)
--- NOTE | 2023-05-24 12:26 | Nephrology Progress Note ---
Date of Service May 24, 2023 Assessment & Plan (1) Acute kidney injury: (2) H/O left radical nephrectomy: (3) Type 2 diabetes mellitus: (4) Proteinuria: (5) Nephrolithiasis: (6) Hypertension: Plan 72 y o m with stage G4/A3 (advanced impairment), b/l cr was 2.5. Had radical left nephrectomy on 05/20/2023 for a concerning cystic neoplasm. Postoperatively renal function worsened and creatinine seem to be stabilizing around 4.1-4.2. Electrolyte acceptable. Overall he has been feeling well. Blood pressure slightly elevated, could be related to pain. Has been voiding normally. No shortness of breath. -- Since renal function seems to be stabilizing and electrolyte acceptable, okay to be discharged with close outpatient lab monitoring, recommend checking renal panel Friday. -- Avoid all NSAIDs, keep well-hydrated -- Has outpatient nephrology follow-up scheduled on 05/29/[address] Yusuf. -- Considering slow progressive decline in renal function since surgery, would recommend holding Ozempic and Jardiance for now which can be started back as an outpatient if renal function stays stable Will follow while inpatient. Admission and Anticipated Discharge Date Admission Date: May 20, 2023 Holli Lockwood was seen and evaluated this morning with his at bedside. Overall he feels well although he continues to have some incisional pain. Blood pressure slightly elevated. Renal function seems to be stabilizing creatinine staying around 4.1, electrolyte acceptable. Review of Systems Review of Systems: Detailed review of system was done and pertinent positives and negatives are mentioned above. Physical Exam Constitutional: WD/WN, vitals as above no acute distress Eyes: + anicteric sclerae Neck: normal visual inspection Respiratory: Auscultation: lungs clear to auscultation bilaterally Cardiovascular: RRR, no murmur, no edema Skin: no rashes, warm and dry Neurologic: no focal motor deficits Psychiatric: Orientation: alert and oriented x 3 Results & Data Vital Signs (Past 12 Hours) Vital Signs Temp Pulse Resp BP BP Pulse Ox O2 Del Method 05/24/23 07:27 36.6 C 61 16 168/78 H 92 Room Air 05/24/23 05:57 91 Nasal Cannula 05/24/23 05:57 36.5 C 60 16 160/74 H 86 L Room Air O2 Flow Rate 05/24/23 07:27 05/24/23 05:57 4 05/24/23 05:57 PG Care Time/CCT Total # of Minutes Spent Total Time Spent with Patient: Total time spent is greater than 50% in coordination of care (as documented) at patient's floor/unit and/or counseling patient: Coding Level of Care Code 18572 SUB INP/OBS CARE 2/35MIN Diagnoses Acute kidney injury N17.9 H/O left radical nephrectomy Z90.5 Type 2 diabetes mellitus E11.9 Proteinuria R80.9 Nephrolithiasis N20.0 Hypertension I10
--- NOTE | 2023-05-27 17:18 | Discharge Summary ---
Date of Service May 27, 2023 Principal Diagnosis Kidney cancer Discharge Data Allergies Allergy/AdvReac Type Severity Reaction Status Date / Time Penicillins Allergy Mild RASH Verified 05/20/23 09:04 lisinopril AdvReac Mild COUGH Verified 05/20/23 09:04 losartan AdvReac Mild Cough Verified 05/20/23 09:04 Consultations 05/20/23 15:11 Consult Nephrology Routine Procedures Performed Operation Date: 05/20/23 10:30 Actual Procedures p Robotic Assisted Laparoscopic Left Radical Nephrectomy(Left) - Ilan Luna MD Hospital Course (1) Papillary renal cell carcinoma: Patient was admitted to the hospital for left renal surgeryinitial plan to attempt partial nephrectomy with conversion to radical nephrectomy if not deemed safe for possible. Details of the surgery are as dictated previously, however the partial nephrectomy was not deemed possible and conversion to radical nephrectomy occurred. His kidney was removed and he tolerated the immediate surgery very well. He was observed overnight and had an expected rise in creatinine. Given his preoperative CKD, Dr. Yusuf from nephrology was consulted and assisted with his postoperative management. His creatinine continued to rise on postoperative day 2 and then plateaued on day 3. No renal replacement was required. He was ultimately discharged in stable condition. He will have follow-up with both myself and Dr. 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 Total Time Total Time Spent Total Time Spent (In Minutes): 30 Discharge Plan Discharge Items Patient Disposition: Home - Self-Care Reason For Visit: RENAL MASS Discharge Diagnosis: Renal Mass Activity: Per Instructions section Lifting: No more than 10 pounds Bathing Comment: Okay to shower after discharge Sexual Activity: Wait until after follow-up appointment Exercise/Sports: Wait until after follow-up appointment Driving/Machine Use: No driving while taking prescription pain medication Non-emergency contact: Urologist Call non-emergency contact if: your pain is not controlled, your temperature is above 101.5, your wound has increased redness, your wound has increased drainage and your wound pain has increased Follow-up/Referrals: Lito Yusuf MD [Physician] - 05/29/23 11:45 am Ilan Luna MD [Physician] - 06/11/23 3:00 pm Patrick Patel MD [Physician] - Diet: Carb Consistent or DM2 Addtl Attending Provider Instructions: Please take all medications as prescribed and keep all follow-ups as scheduled. Please call our office at [phone] with any questions, concerns or need to reschedule appointments for any reason. We are happy to assist you. Recovering at home: We recommend having someone with you for the first few days after surgery to help care for you. It is okay to shower tomorrow. Please avoid swimming, bathing or using hot tub until incisions are well healed. Avoid driving until you are not requiring pain medication any further. Walk at least a few times a day. Increase your distance, as you feel able. Stairs in your home are okay. Please avoid strenuous or sexual activity until your follow-up. We recommend using stool softener (i.e. Colace) to prevent constipation and straining, especially the first two weeks post operatively. Call [facility] at [phone] if you experience: Chest pain or trouble breathing (call 911 or go to the hospital). Fever of 101F or higher Symptoms of infection at incision site, including redness or swelling, warmth, or bad-smelling drainage If you have catheter, and you notice: o Bloody urine or drainage that is dark red or has large clots (Please remember a small amount of blood is normal) o No drainage from the catheter for more than 6 hours o The catheter comes out of your bladder Pain that is not controlled with medicines Per nephrology recommendations, please get your kidney function tested on 05/26. An order has been placed to have this done at a [facility]. Pending Studies at Discharge: Yes (pathology) Stand-Alone Forms: My [facility] [employer], Smoking Cessation Medications and DC Order Prescriptions: Continued bumetanide 1 mg tablet 1 mg PO BID Qty: 180 3RF ergocalciferol (vitamin D2) 1,250 mcg (50,000 unit) capsule 1,250 mcg PO .COMPLEX Qty: 12 0RF Rx Instructions: 1,250 mcg PO monthly as maintenance dosing; metoprolol succinate 50 mg capsule,sprinkle,ER 24hr 50 mg PO QPM amlodipine 5 mg tablet 5 mg PO QPM Humira 40 mg/0.8 mL syringe kit 40 mg SQ Q14D methotrexate sodium 2.5 mg Tablet 2.5 mg PO UD Patient Comments: takes 3 tablets on gabapentin 300 mg Capsule 300 mg PO UD Patient Comments: takes 600 qam/300mg qpm folic acid 1 mg tablet 1 mg PO UD Patient Comments: does not take on dutasteride 0.5 mg capsule 0.5 mg PO QAM cyanocobalamin (vitamin B-12) 1,000 mcg Tablet 1,000 mcg PO DAILY amitriptyline 25 mg Tablet 25 mg PO HS rosuvastatin 10 mg Tablet 10 mg PO QPM Held Ozempic 2 mg/dose (8 mg/3 mL) pen injector 2 mg subcut .weekly Qty: 3 0RF Hold Instructions: Resume on 05/29/23. If cleared by nephrology Patient Comments: takes on Tuesdays empagliflozin 10 mg Tablet 10 mg PO QAM Hold Instructions: Resume on 05/29/23. If cleared by nephrology Discontinued meloxicam 7.5 mg tablet 7.5 mg PO DAILY PRN (Reason: Pain) potassium chloride 10 mEq Capsule, Extended Release 10 meq PO BID Discharge Orders: Discharge Order (Routine); Ordered 05/24/23 Ordered By: Pramod Hernandez Admission Data Admit Date/Time: 05/20/23 13:59 Attending Provider: Ilan Luna Admit Provider: Ilan Luna Primary Care Provider: Yamil Chappell Other Providers: Lito Yusuf ; Gunjan Kaplan Kevin C. ; Serina Slater Other Interventions: Discharge Summary Assessment (RN) Last Done: 05/24/23 12:58 Coding Level of Care Code 93638 IN/OBS DISCH 30 MIN/LESS Diagnoses Papillary renal cell carcinoma C64.9
== END 2023-05-24 13:28 | disposition home or self-care (01) | DRG 657 ==
LOC: ASU 08:45 → 3E 13:59 → INTOOBSV 13:59